=== PATIENT | female | born 1950 | race Caucasian/White ===

== ENCOUNTER 2023-03-11 14:16 | Emergency (ER) | payer MEDICARE, BC, SELFPAY ==
[2023-03-11 14:50] VITALS: BP 112/70; PULSE 91; RESP 18; TEMP 37.5; O2SAT 95; BMI 28.3
[2023-03-11 16:13] VITALS: O2SAT 97
--- NOTE | 2023-03-11 16:17 | CRLHL7_ITS ---
For Patients: As a result of the Cures Act, medical imaging exams and procedure reports are released immediately into your electronic medical record. You may view this report before your referring provider. If you have questions, please contact your health care provider. INDICATION: Dyspnea. TECHNIQUE: Chest radiographs, two views. COMPARISON: None. FINDINGS: Lines/Tubes/Devices: None. Mediastinum: Normal cardiac silhouette. Tortuous aorta. Lungs: Patchy ill-defined opacification of the left lower lung zone. Airways: The trachea remains midline. Pleura: No pleural effusions or pneumothorax. Bones: No acute osseous abnormalities. Upper Abdomen: Unremarkable. IMPRESSION: Patchy ill-defined opacification of the left lower lung zone may represent atelectasis versus a developing pneumonia in the appropriate clinical setting. Dictated by Oscar Lopez MD @ 03/11/2023 5:40:23 PM (Electronically Signed)
--- NOTE | 2023-03-11 16:23 | ED.GENADULT ---
HPI - General Adult General Chief complaint: Shortness of Breath/Dyspnea Stated complaint: Shortness of breath Time Seen by Provider: 03/11/23 16:03 Source: patient Mode of arrival: ambulatory Limitations: no limitations History of Present Illness HPI narrative: 72-year-old female coming in today complaining of chest pain that started approximately 14 hours ago. She states she woke up in the middle of the night and had difficulty breathing because she has so much pain in her central chest. The pain radiated into both shoulders and her upper back. She states that she was able to sit up and the pain got better. She has been afraid to lay down for the last 14 hours. She also states she has not eaten in the last 14 hours because she is afraid that will make her pain worse. She states that sitting here in the ER, she is asymptomatic. However, she states that she cannot take a full breath because it causes pain in the central chest so she states that she is breathing with very shallow, short breaths. She denies fevers or chills. She states that she has a chronic cough, she is a smoker. Smokes half pack cigarettes per day for many years. She denies headache. She has no abdominal discomfort. No swelling of the extremities. She denies any recent travel or long car rides. She has no personal history of blood clots. Past medical history significant for hypothyroidism, hyperlipidemia, GERD. She is on famotidine, levothyroxine rosuvastatin. Denies any new medications. Related Data Home Medications Medication Instructions Recorded Confirmed levothyroxine 100 mcg tablet 100 mcg PO QDAY 12/18/21 03/11/23 (Synthroid) famotidine 20 mg tablet (Acid-Pep) 20 mg PO DAILY 03/11/23 03/11/23 rosuvastatin 10 mg tablet 10 mg PO QPM 03/11/23 03/11/23 Previous Rx's Medication Instructions Recorded amoxicillin 875 mg-potassium 1 tab PO BID 7 days #14 tabs 03/11/23 clavulanate 125 mg tablet azithromycin 250 mg tablet 250 mg PO DIRECTED #6 tabs 03/11/23 Allergies Allergy/AdvReac Type Severity Reaction Status Date / Time No Known Drug Allergies Allergy Verified 03/11/23 17:42 Review of Systems Status of ROS: Reports: 10 or more systems reviewed and unremarkable except as noted in History and below PFSH PFSH Social History Smoking Status: Current every day smoker Exam Narrative: Exam Narrative: Well-nourished well-developed patient in no acute distress. Alert and oriented. Answers questions appropriately. Mood and affect are appropriate. Thoughts are goal oriented and rational. No tangential or magical thinking noted. Patient speaks in full sentences without needing to catch her breath. Patient is breathing normally, breaths do not appear shallow. She is not tachypneic. HEENT: Normocephalic atraumatic. Pupils are equally round reactive to light. Extraocular muscles are intact. Conjunctivae are moist without any icterus noted. Moist mucous membranes. Posterior pharynx is normal. Neck is soft without any lymphadenopathy or thyromegaly. No masses are appreciated. Cardiovascular: Heart is regular rate and rhythm S1 and S2 are present without any murmurs. Lungs: Clear to auscultation bilaterally no wheezes rhonchi or rales are appreciated. Patient takes deep breaths without any discomfort. I cannot reproduce her pain with palpation. Abdomen: Soft and nontender nondistended with normal bowel sounds. No guarding or rebound. No masses or organomegaly appreciated. Extremities: Bilateral lower extremities are without edema. Normal DP and PT pulses. Skin: Well perfused without any obvious rashes. Const: Vital Signs, click to edit/add: Vital Signs - 24 hr 03/11/23 14:50 03/11/23 16:13 03/11/23 18:00 Temperature 99.5 F Pulse Rate [Right Pulse Oximeter] 91 71 Respiratory Rate 18 18 Blood Pressure [Ri ght Upper Arm] 112/70 114/64 Pulse Oximetry 95 97 95 Oxygen Delivery Me thod Room Air Room Air Course Course ED Course: EKG, read by me, shows normal sinus rhythm with a pulse of 74. CBC showed a slightly elevated white cell count. CRP is elevated at 4.8. Triple swab is negative. Chest x-ray, read by me, shows a probable left-sided infiltrate. D-dimer is elevated. Therefore we did do a CT PE study. This did not show any evidence of PE. Atelectasis was mentioned. Vital Signs Vital signs: Initial Vital Signs Temperature 99.5 F 03/11/23 14:50 Temperature Source Temporal Artery Scan 03/11/23 14:50 Pulse Rate 91 03/11/23 14:50 Respiratory Rate 18 03/11/23 14:50 Blood Pressure 112/70 03/11/23 14:50 Blood Pressure Mean 84 03/11/23 14:50 Blood Pressure Position Sitting 03/11/23 14:50 Pulse Oximetry 95 03/11/23 14:50 Oxygen Delivery Method Room Air 03/11/23 14:50 Vital Signs Temperature 99.5 F 03/11/23 14:50 Pulse Rate 91 03/11/23 14:50 Respiratory Rate 18 03/11/23 14:50 Blood Pressure 112/70 03/11/23 14:50 Pulse Oximetry 95 03/11/23 14:50 Oxygen Delivery Method Room Air 03/11/23 14:50 Temperature 99.5 F 03/11/23 14:50 Pulse Rate 71 03/11/23 18:00 Respiratory Rate 18 03/11/23 18:00 Blood Pressure 114/64 03/11/23 18:00 Pulse Oximetry 95 03/11/23 18:00 Oxygen Delivery Method Room Air 03/11/23 18:00 Medical Decision Making MDM Narrative Medical decision making narrative: 72-year-old female chest pain and subjective shortness of breath. Differential diagnosis at this time includes pneumonia, pleurisy, chest wall pain. I do not see any evidence of a PE, acute coronary syndrome. Given that she is generally asymptomatic unless she is taking a deep breath I do he not think this represents a aortic dissection. At this time given her elevated CRP and white blood cell count will treat her for pneumonia with Augmentin and azithromycin. She does also have a few pulmonary nodules that she needs to follow up with her primary care provider about. Lab Data Lab results reviewed: Yes I reviewed the patient's lab results Labs: Lab Results 03/11/23 03/11/23 03/11/23 Range/Units 16:00 16:00 16:00 WBC 12.92 H (4.50-11.00) K/uL RBC 4.24 (4.00-5.20) m/uL Hgb 12.0 (12.0-16.0) gm/dL Hct 36.6 (33.0-51.0) % MCV 86 (80-100) fL MCH 28 (26-34) pg MCHC 33 (32-36) gm/dL RDW Coeff of Elie 13.4 (11.5-15.5) % Plt Count 407 (140-440) K/uL Neut % (Auto) 72.6 H (42.0-72.0) % Lymph % (Auto) 19.3 L (20-44) % [place] % (Auto) 7.6 (0.0-11.0) % Eos % (Auto) 0.0 (0.0-7.0) % Baso % (Auto) 0.3 (0.0-3.0) % Neut # (Auto) 9.40 H (1.7-7.0) K/uL Lymph # (Auto) 2.50 (0.90-2.90) K/uL [place] # (Auto) 1.00 H (0.00-0.90) K/UL Eos # (Auto) 0.00 (0.00-0.50) K/uL Baso # (Auto) 0.00 (0.00-0.30) K/uL Abs Immat Gran (auto) 0.00 (0.00-0.30) K/uL Imm/Tot Granulo (auto) 0.2 % ESR 26 H (2-20) mm/hr D-Dimer Quant (PE/DVT) 0.70 H (0.00-0.50) ug/ml Sodium Cancelled 134 L Potassium Cancelled 3.8 Chloride Cancelled Carbon Dioxide Anion Gap BUN Creatinine Estimated Creat Clear Estimated GFR Glucose Calcium Total Bilirubin (0.1-1.5) mg/dL Direct Bilirubin (0.0-0.5) mg/dL AST (12-35) U/L ALT (4-35) U/L Alkaline Phosphatase (40-150) U/L Troponin I (0.01-0.04) ng/mL C-Reactive Protein (0.5-1.0) mg/dL NT-Pro-B Natriuret Pep pg/mL Total Protein (6.0-8.3) g/dL Albumin (3.3-5.0) g/dL Lipase (23-300) U/L SARS-CoV-2 (PCR) (Negative) Influenza Type A (PCR) (Negative) Influenza Type B (PCR) (Negative) RSV (PCR) (Negative) POC Troponin I (0.01-0.04) ng/ml 03/11/23 03/11/23 03/11/23 Range/Units 16:00 16:00 16:00 WBC (4.50-11.00) K/uL RBC (4.00-5.20) m/uL Hgb (12.0-16.0) gm/dL Hct (33.0-51.0) % MCV (80-100) fL MCH (26-34) pg MCHC (32-36) gm/dL RDW Coeff of Elie (11.5-15.5) % Plt Count (140-440) K/uL Neut % (Auto) (42.0-72.0) % Lymph % (Auto) (20-44) % [place] % (Auto) (0.0-11.0) % Eos % (Auto) (0.0-7.0) % Baso % (Auto) (0.0-3.0) % Neut # (Auto) (1.7-7.0) K/uL Lymph # (Auto) (0.90-2.90) K/uL [place] # (Auto) (0.00-0.90) K/UL Eos # (Auto) (0.00-0.50) K/uL Baso # (Auto) (0.00-0.30) K/uL Abs Immat Gran (auto) (0.00-0.30) K/uL Imm/Tot Granulo (auto) % ESR (2-20) mm/hr D-Dimer Quant (PE/DVT) (0.00-0.50) ug/ml Sodium Potassium Chloride 99 Carbon Dioxide Cancelled 22 Anion Gap Cancelled 13 BUN Cancelled Creatinine Estimated Creat Clear Estimated GFR Glucose Calcium Total Bilirubin (0.1-1.5) mg/dL Direct Bilirubin (0.0-0.5) mg/dL AST (12-35) U/L ALT (4-35) U/L Alkaline Phosphatase (40-150) U/L Troponin I (0.01-0.04) ng/mL C-Reactive Protein (0.5-1.0) mg/dL NT-Pro-B Natriuret Pep pg/mL Total Protein (6.0-8.3) g/dL Albumin (3.3-5.0) g/dL Lipase (23-300) U/L SARS-CoV-2 (PCR) (Negative) Influenza Type A (PCR) (Negative) Influenza Type B (PCR) (Negative) RSV (PCR) (Negative) POC Troponin I (0.01-0.04) ng/ml 03/11/23 03/11/23 03/11/23 Range/Units 16:00 16:00 16:00 WBC (4.50-11.00) K/uL RBC (4.00-5.20) m/uL Hgb (12.0-16.0) gm/dL Hct (33.0-51.0) % MCV (80-100) fL MCH (26-34) pg MCHC (32-36) gm/dL RDW Coeff of Elie (11.5-15.5) % Plt Count (140-440) K/uL Neut % (Auto) (42.0-72.0) % Lymph % (Auto) (20-44) % [place] % (Auto) (0.0-11.0) % Eos % (Auto) (0.0-7.0) % Baso % (Auto) (0.0-3.0) % Neut # (Auto) (1.7-7.0) K/uL Lymph # (Auto) (0.90-2.90) K/uL [place] # (Auto) (0.00-0.90) K/UL Eos # (Auto) (0.00-0.50) K/uL Baso # (Auto) (0.00-0.30) K/uL Abs Immat Gran (auto) (0.00-0.30) K/uL Imm/Tot Granulo (auto) % ESR (2-20) mm/hr D-Dimer Quant (PE/DVT) (0.00-0.50) ug/ml Sodium Potassium Chloride Carbon Dioxide Anion Gap BUN 9 Creatinine Cancelled 0.5 Estimated Creat Clear Cancelled 39.04 Estimated GFR Cancelled Glucose Calcium Total Bilirubin (0.1-1.5) mg/dL Direct Bilirubin (0.0-0.5) mg/dL AST (12-35) U/L ALT (4-35) U/L Alkaline Phosphatase (40-150) U/L Troponin I (0.01-0.04) ng/mL C-Reactive Protein (0.5-1.0) mg/dL NT-Pro-B Natriuret Pep pg/mL Total Protein (6.0-8.3) g/dL Albumin (3.3-5.0) g/dL Lipase (23-300) U/L SARS-CoV-2 (PCR) (Negative) Influenza Type A (PCR) (Negative) Influenza Type B (PCR) (Negative) RSV (PCR) (Negative) POC Troponin I (0.01-0.04) ng/ml 03/11/23 03/11/23 03/11/23 Range/Units 16:00 16:00 16:00 WBC (4.50-11.00) K/uL RBC (4.00-5.20) m/uL Hgb (12.0-16.0) gm/dL Hct (33.0-51.0) % MCV (80-100) fL MCH (26-34) pg MCHC (32-36) gm/dL RDW Coeff of Elie (11.5-15.5) % Plt Count (140-440) K/uL Neut % (Auto) (42.0-72.0) % Lymph % (Auto) (20-44) % [place] % (Auto) (0.0-11.0) % Eos % (Auto) (0.0-7.0) % Baso % (Auto) (0.0-3.0) % Neut # (Auto) (1.7-7.0) K/uL Lymph # (Auto) (0.90-2.90) K/uL [place] # (Auto) (0.00-0.90) K/UL Eos # (Auto) (0.00-0.50) K/uL Baso # (Auto) (0.00-0.30) K/uL Abs Immat Gran (auto) (0.00-0.30) K/uL Imm/Tot Granulo (auto) % ESR (2-20) mm/hr D-Dimer Quant (PE/DVT) (0.00-0.50) ug/ml Sodium Potassium Chloride Carbon Dioxide Anion Gap BUN Creatinine Estimated Creat Clear Estimated GFR 98 Glucose Cancelled 115 Calcium Cancelled 9.7 Total Bilirubin 0.6 (0.1-1.5) mg/dL Direct Bilirubin 0.0 (0.0-0.5) mg/dL AST 20 (12-35) U/L ALT 16 (4-35) U/L Alkaline Phosphatase 83 (40-150) U/L Troponin I < 0.01 L (0.01-0.04) ng/mL C-Reactive Protein (0.5-1.0) mg/dL NT-Pro-B Natriuret Pep pg/mL Total Protein (6.0-8.3) g/dL Albumin (3.3-5.0) g/dL Lipase (23-300) U/L SARS-CoV-2 (PCR) (Negative) Influenza Type A (PCR) (Negative) Influenza Type B (PCR) (Negative) RSV (PCR) (Negative) POC Troponin I (0.01-0.04) ng/ml 03/11/23 03/11/23 03/11/23 Range/Units 16:00 16:00 16:15 WBC (4.50-11.00) K/uL RBC (4.00-5.20) m/uL Hgb (12.0-16.0) gm/dL Hct (33.0-51.0) % MCV (80-100) fL MCH (26-34) pg MCHC (32-36) gm/dL RDW Coeff of Elie (11.5-15.5) % Plt Count (140-440) K/uL Neut % (Auto) (42.0-72.0) % Lymph % (Auto) (20-44) % [place] % (Auto) (0.0-11.0) % Eos % (Auto) (0.0-7.0) % Baso % (Auto) (0.0-3.0) % Neut # (Auto) (1.7-7.0) K/uL Lymph # (Auto) (0.90-2.90) K/uL [place] # (Auto) (0.00-0.90) K/UL Eos # (Auto) (0.00-0.50) K/uL Baso # (Auto) (0.00-0.30) K/uL Abs Immat Gran (auto) (0.00-0.30) K/uL Imm/Tot Granulo (auto) % ESR (2-20) mm/hr D-Dimer Quant (PE/DVT) (0.00-0.50) ug/ml Sodium Potassium Chloride Carbon Dioxide Anion Gap BUN Creatinine Estimated Creat Clear Estimated GFR Glucose Calcium Total Bilirubin (0.1-1.5) mg/dL Direct Bilirubin (0.0-0.5) mg/dL AST (12-35) U/L ALT (4-35) U/L Alkaline Phosphatase (40-150) U/L Troponin I Cancelled (0.01-0.04) ng/mL C-Reactive Protein 4.8 H (0.5-1.0) mg/dL NT-Pro-B Natriuret Pep 174 Cancelled pg/mL Total Protein 7.5 (6.0-8.3) g/dL Albumin 4.7 (3.3-5.0) g/dL Lipase 13 L (23-300) U/L SARS-CoV-2 (PCR) Negative SARS-CoV-2 (Negative) Influenza Type A (PCR) Negative PCR FLU A (Negative) Influenza Type B (PCR) Negative PCR FLU B (Negative) RSV (PCR) Negative PCR RSV (Negative) POC Troponin I (0.01-0.04) ng/ml 03/11/23 Range/Units 16:17 WBC (4.50-11.00) K/uL RBC (4.00-5.20) m/uL Hgb (12.0-16.0) gm/dL Hct (33.0-51.0) % MCV (80-100) fL MCH (26-34) pg MCHC (32-36) gm/dL RDW Coeff of Elie (11.5-15.5) % Plt Count (140-440) K/uL Neut % (Auto) (42.0-72.0) % Lymph % (Auto) (20-44) % [place] % (Auto) (0.0-11.0) % Eos % (Auto) (0.0-7.0) % Baso % (Auto) (0.0-3.0) % Neut # (Auto) (1.7-7.0) K/uL Lymph # (Auto) (0.90-2.90) K/uL [place] # (Auto) (0.00-0.90) K/UL Eos # (Auto) (0.00-0.50) K/uL Baso # (Auto) (0.00-0.30) K/uL Abs Immat Gran (auto) (0.00-0.30) K/uL Imm/Tot Granulo (auto) % ESR (2-20) mm/hr D-Dimer Quant (PE/DVT) (0.00-0.50) ug/ml Sodium Potassium Chloride Carbon Dioxide Anion Gap BUN Creatinine Estimated Creat Clear Estimated GFR Glucose Calcium Total Bilirubin (0.1-1.5) mg/dL Direct Bilirubin (0.0-0.5) mg/dL AST (12-35) U/L ALT (4-35) U/L Alkaline Phosphatase (40-150) U/L Troponin I (0.01-0.04) ng/mL C-Reactive Protein (0.5-1.0) mg/dL NT-Pro-B Natriuret Pep pg/mL Total Protein (6.0-8.3) g/dL Albumin (3.3-5.0) g/dL Lipase (23-300) U/L SARS-CoV-2 (PCR) (Negative) Influenza Type A (PCR) (Negative) Influenza Type B (PCR) (Negative) RSV (PCR) (Negative) POC Troponin I 0.00 L (0.01-0.04) ng/ml Imaging Data Chest x-ray: Attestation: I have reviewed the pertinent imaging results. Radiologist's impression: Chest radiographs, two views. COMPARISON: None. FINDINGS: Lines/Tubes/Devices: None. Mediastinum: Normal cardiac silhouette. Tortuous aorta. Lungs: Patchy ill-defined opacification of the left lower lung zone. Airways: The trachea remains midline. Pleura: No pleural effusions or pneumothorax. Bones: No acute osseous abnormalities. Upper Abdomen: Unremarkable. IMPRESSION: Patchy ill-defined opacification of the left lower lung zone may represent atelectasis versus a developing pneumonia in the appropriate clinical setting. CT scan - chest: Attestation: I have reviewed the pertinent imaging results. Radiologist's impression: CT chest pulmonary angiogram acquired with IV contrast. 95 mL Isovue COMPARISON: None FINDINGS: Cardiovascular structures: Normal vascular enhancement of the pulmonary arteries, no sign of pulmonary embolism. Heart size is normal. No sign of aneurysm or dissection in the thoracic aorta. Mediastinum and lakia: No mass or adenopathy. Lungs: Mild emphysema. Right upper lobe peripheral micro nodule measuring 3 millimeters 07/22 basilar atelectasis. Additional few nodules to include a 4 millimeter perifissural nodule along the right minor fissure . Pleura and pericardium: No effusions. Chest wall and axilla: No mass or adenopathy. Bones: No significant findings. Upper abdomen: Fatty infiltration of pancreas IMPRESSION: 1. No pulmonary emboli. 2. Few small pulmonary nodules follow-up per Fleischner society guidelines. ECG Data Attestation: I personally reviewed and interpreted this ECG as follows: Discharge Plan Discharge Clinical Impression: Pneumonia Patient Disposition: Home, Self-Care Condition: Stable Additional Instructions: Take all antibiotics as prescribed. Okay to use Tylenol as needed/as directed for fever or achiness. Make sure to take deep breaths throughout the day. Return to the ER if you develop difficulty breathing. Your CT scan today did not show any evidence of blood clots. However did show some pulmonary nodules, which are usually benign findings. However, given your smoking history you should follow-up with your primary care provider to discuss if any next steps are needed. We will print a report of the CT scan today that you can take with you and follow-up with your primary care provider in the next couple of weeks. Prescriptions: New amoxicillin-pot clavulanate 875-125 mg tablet 1 tab PO BID 7 Days Qty: 14 0RF azithromycin 250 mg tablet 250 mg PO DIRECTED Qty: 6 0RF Taper: Z-LITA 500 mg Q24H for 1 Day and 0 Hour 250 mg Q24H for 4 Days and 0 Hour Rx Instructions: For 250 mg dose pack: take 500 mg today (day 1), then 250 mg for 4 days (days 2-5) No Action levothyroxine [Synthroid] 100 mcg tablet 100 mcg PO QDAY rosuvastatin 10 mg tablet 10 mg PO QPM famotidine [Acid-Pep] 20 mg tablet 20 mg PO DAILY Follow Up/Referrals: Yolanda Reilly DO [Primary Care Provider] - Stand Alone Forms: [facility]
[2023-03-11 16:38] LABS: Basophils Percent Auto 0.3 % (0.0-3.0); Hematocrit 36.6 % (33.0-51.0); Immature Granulocytes Pct Auto 0.2 %; Lymphocytes Percent Auto 19.3 % (20-44); Mean Corpuscular HGB Conc 33 gm/dL (32-36); Mean Corpuscular Hemoglobin 28 pg (26-34); Mean Corpuscular Volume 86 fL (80-100); Monocytes Percent Auto 7.6 % (0.0-11.0); Neutrophils Percent Auto 72.6 % (42.0-72.0); Platelet Count* 407 K/uL (140-440); RDW Coefficient of Variation % 13.4 % (11.5-15.5); Red Blood Count 4.24 m/uL (4.00-5.20); White Blood Count* 12.92 K/uL (4.50-11.00)
[2023-03-11 16:45] LABS: Slide Review Reflex No
[2023-03-11 16:55] LABS: Albumin* 4.7 g/dL (3.3-5.0); Chloride* 99 mmol/L (96-114); Sodium* 134 mmol/L (135-149)
[2023-03-11 16:56] LABS: Potassium* 3.8 mmol/L (3.6-5.1)
[2023-03-11 16:58] LABS: Creatinine* 0.5 mg/dL (0.5-1.5); Est. Creatinine Clearance* 39.04; Estimated Glomerular Filt Rate 98 ml/min
[2023-03-11 16:59] LABS: Alanine Aminotransferase* 16 U/L (4-35); Alkaline Phosphatase* 83 U/L (40-150); Anion Gap 13 mEq/L (7-15); Aspartate Amino Transferase* 20 U/L (12-35); Bilirubin Total* 0.6 mg/dL (0.1-1.5); Blood Urea Nitrogen* 9 mg/dL (7-30); Calcium* 9.7 mg/dL (8.4-10.6); Carbon Dioxide* 22 mmol/L (20-32); Glucose* 115 mg/dL (60-115); Lipase* 13 U/L (23-300); Total Protein* 7.5 g/dL (6.0-8.3)
[2023-03-11 17:02] LABS: C Reactive Protein* 4.8 mg/dL (0.5-1.0)
--- NOTE | 2023-03-11 17:04 | CRLHL7_ITS ---
For Patients: As a result of the Century Cures Act, medical imaging exams and procedure reports are released immediately into your electronic medical record. You may view this report before your referring provider. If you have questions, please contact your health care provider. INDICATION: Chest pain TECHNIQUE: CT chest pulmonary angiogram acquired with IV contrast. 95 mL Isovue COMPARISON: None FINDINGS: Cardiovascular structures: Normal vascular enhancement of the pulmonary arteries, no sign of pulmonary embolism. Heart size is normal. No sign of aneurysm or dissection in the thoracic aorta. Mediastinum and lakia: No mass or adenopathy. Lungs: Mild emphysema. Right upper lobe peripheral micro nodule measuring 3 millimeters 07/22 basilar atelectasis. Additional few nodules to include a 4 millimeter perifissural nodule along the right minor fissure . Pleura and pericardium: No effusions. Chest wall and axilla: No mass or adenopathy. Bones: No significant findings. Upper abdomen: Fatty infiltration of pancreas IMPRESSION: 1. No pulmonary emboli. 2. Few small pulmonary nodules follow-up per Fleischner society guidelines. Please note that all CT scans at this facility use dose modulation, iterative reconstruction, and/or weight-based dosing when appropriate to reduce radiation dose to as low as reasonably achievable. Dictated by Vicki Hernández MD @ 03/11/2023 6:29:43 PM (Electronically Signed)
[2023-03-11 17:10] LABS: NT Pro B Type NatriureticPept* 174 pg/mL
[2023-03-11 17:12] LABS: Troponin I* < 0.01 ng/mL (0.01-0.04)
[2023-03-11 17:17] LABS: PCR FLU A Negative PCR FLU A (Negative); PCR FLU B Negative PCR FLU B (Negative); PCR RSV Negative PCR RSV (Negative)
[2023-03-11 17:18] LABS: SARS PCR* Negative SARS-CoV-2 (Negative)
[2023-03-11 17:22] LABS: Erythrocyte SedimentationRate* 26 mm/hr (2-20)
[2023-03-11 18:00] VITALS: BP 114/64; PULSE 71; RESP 18; O2SAT 95
== END 2023-03-11 18:48 | disposition home or self-care (01) ==
PROVIDERS: Emergency Provider Family Medicine; PCP Family Medicine
DX: J18.9 Pneumonia, unspecified organism (principal)
CPT/HCPCS: 36415; 71046; 71275; 80048; 80076; 83690; 83880; 84484; 85025; 85379; 85651; 86140; 87631; 93005; 94761; 99284; 99285; Q9967

== ENCOUNTER 2023-06-23 08:06 | Outpatient (CLI) | payer MEDICARE, BC, SELFPAY ==
--- NOTE | 2023-06-23 08:15 | FL_ITS ---
Patient: ADAN ROSALES Facility:?[facility] RIS Patient ID:?[id number] Site Patient ID:?[id number]. Site :?[id number] Study:?XRay-Abdomen ESOPHAGRAM W/AIR TO READ-06/23/2023 11:36:37 AM Ordering Physician:?HAILEE BRANCH Final Report: Technique: Double-contrast esophagram performed after the uneventful administration of effervescent crystals and thick barium followed by thin barium. Fluoroscopy time 48 seconds. Indication: Dysphagia Comparison: None. Findings: A small sliding hiatal hernia is present. There is minimal spasm of the distal esophagus. Delayed esophageal clearance noted. No obstruction to the flow of barium. No stricture. A small diverticulum is noted at the upper esophagus. No ulceration. Impression: Decreased esophageal motility. No stricture. Small sliding hiatal hernia. Minimal distal esophageal reflux esophagitis. Dictated by Andre Hassan MD @ 06/23/2023 12:36:35 PM Signed by:?Andre Hassan MD @06/23/2023 12:36:35 PM (Electronic Signature)
== END 2023-06-23 08:07 | disposition home or self-care (01) ==
LOC: RAD 08:07
PROVIDERS: PCP Family Medicine; Visit Provider Family Medicine
DX: R13.10 Dysphagia, unspecified (principal); K44.9 Diaphragmatic hernia without obstruction or gangrene
CPT/HCPCS: 74221

== ENCOUNTER 2023-11-04 10:06 | Outpatient (CLI) | payer MEDICARE, BC, SELFPAY ==
--- OUTSIDE RECORDS SUMMARY | 2023-11-04 10:10 | XMS_ITS | Clinical Summary ---
Author Organization [employer] Aff[facility] Address [place], [place] [address] Care Team Providers Care Medical Donation Professional Name Role Phone IrasemahoangYolanda Primary Care Provider [phone] Allergies No known active allergies Medications Medication Sig Dispensed Refills Start Date End Date Status vitamin B complex (B-50 COMPLEX) tablet Take 1 tablet by mouth once daily. 0 5 Active cyanocobalamin (VITAMIN B-12) 1,000 mcg tablet Take 1 tablet by mouth once daily. Unsure of dose. 0 5 Active glucosamine-chondr oitin, 500-400 mg, (COSAMIN DS 500/400) 500-400 mg cap Take 1 capsule by mouth once daily. 0 8 Active famotidine (PEPCID) 20 mg tablet Take 20 mg by mouth two times daily. 0 0 Active Lactobacillus rhamnosus GG 5 billion cell chew Chew by mouth. 0 2 Active rosuvastatin (CRESTOR) 10 mg tabletIndications: Hyperlipidemia, unspecified hyperlipidemia type Take 1 Tablet (10 mg) by mouth at bedtime. 90 Tablet 3 3 Active Synthroid 100 mcg tabletIndications: Hypothyroidism, unspecified type TAKE ONE TABLET BY MOUTH EVERY DAY 90 Tablet 2 4 Active acetaminophen (TYLENOL EXTRA STRGTH) 500 mg tablet Take 500 mg by mouth. 1 in the am, 1 at noon and 2 at bedtime Max acetaminophen dose: 4000mg in 24 hrs. Active miscellaneous medical supply (Blood Pressure Cuff) miscIndications:El evated BP without diagnosis of hypertension As directed. Automatic home blood pressure cuff 1 Each 4 Active triamcinolone (ARISTOCORT) 0.5 % ointmentIndication s:Vaginal itching Apply peasized amount to perineum nightly x 2 weeks, then decrease to twice a week 120 g 1 4 Active polyethylene glycol-electrolyte (GOLYTELY) 236-22.74-6.74 -5.86 gram suspensionIndicati ons:Encounter for screening colonoscopy Drink 2 liters (1/2 of prep) the day before colonoscopy and drink 2 liters (other 1/2 of prep) 6 hours before colonoscopy appointment. 4000 mL 4 Active omeprazole (PRILOSEC) 40 mg Delayed-Release capsuleIndications :Motility disorder, esophageal TAKE ONE CAPSULE BY MOUTH EVERY DAY BEFORE A MEAL 60 Capsule 2 4 Active omeprazole (PRILOSEC) 40 mg Delayed-Release capsuleIndications :Motility disorder, esophageal TAKE ONE CAPSULE BY MOUTH EVERY DAY BEFORE A MEAL 60 Capsule 4 024 Discontinued Hospital, Clinic, or Other Facility Administered Medication Ordered Dose Route Frequency Start Date End Date Status fentaNYL (PF) (SUBLIMAZE) 50 mcg/mL injection 100 mcgIndications:Screening for colon cancer 100 mcg IV ONE TIME 10/12/2023 10/12/2023 Ended midazolam (VERSED) injection 2 mgIndications:Screening for colon cancer 2 mg IV ONE TIME 10/12/2023 10/12/2023 Ended Active Problems Problem Noted Date Diagnosed Date Colon polyp 10/18/2023 Overview: Colonoscopy 09/2023 TA, repeat in 5 years Osteopenia of multiple sites 10/05/2016 DDD (degenerative disc disease), lumbar 08/27/19 16 Gastritis 01/09/2015 Overview: EGD 12/2014 gastritis, duodenitis Diverticulosis of large intestine without hemorr ty 12/11/2014 Routine adult health maintenance 07/19/2013 Overview: Colonoscopy 07/2013 diverticulosis repeat in 10 years Mixed hyperlipidemia 09/05/2007 Unspecified vitamin deficiency 09/02/2006 Stricture and stenosis of esophagus 08/29/2006 Overview: last endoscopy 2003, repeat 2009 Esophageal reflux 08/29/2006 Tobacco use disorder 08/29/2006 Insomnia, unspecified 08/29/2006 Palpitations 08/29/2006 Routine general medical exam ination at a health care facility 08/29/2006 Unspecified hypothyroidism Other and unspecified hyperlipidemia Cervicalgia Unspecified hypothyroidism Resolved Problems Problem Noted Date Diagnosed Date Resolved Date Mixed hyperlipidemia 09/05/2007 009 Mixed hyperlipidemia 09/05/2007 009 Encounters Date Type Department Care Team Description 10/31/2023 1:05 PM CDT Preop Visit [facility] [address] [place] [address] Yolanda Reilly DO Preoperative Exam (EGD at [facility] 11/04/[address] Mora ) 10/31/2023 Travel 10/23/2023 Refill [facility] [address] [place] [address] Yolanda Reilly DO Refill Request (Omeprazole) 10/17/2023 2:20 PM CDT Office Visit [facility] [address] [place] [address] Yolanda Reilly DO Abdominal Pain (medication helping but not enough) 10/17/2023 Telephone [facility] [address] [place] [address] Carlyle Mora MD Pre Procedure 10/17/2023 Travel 10/12/2023 8:45 AM CDT Office Visit [address] [address] Carlyle Mora MD Procedure (colonoscopy) 10/12/2023 Travel 10/10/2023 Telephone [facility] [address] [place] [address] Yolanda Reilly DO questions (omeprazole (PRILOSEC) 40 mg Delayed-Release capsule/famotidine (PEPCID) 20 mg tablet/) 10/04/2023 Telephone [facility] [address] [place] [address] Carlyle Mora MD Appointment Reminder (Colonoscopy 10/12/23) 09/21/2023 11:00 AM CDT Office Visit [facility] [[email or web address] [address] [place] [address] Daryl Fonseca MD Hip Pain/problem (right hip pain) 09/21/2023 Travel 09/05/2023 Telephone [facility] [address] [place] [address] Yolanda Reilly DO Error-please disregard 09/05/2023 Telephone [facility] [address] [facility] [place] [address] Yolanda eRilly DO Results 09/04/2023 Orders Only [facility] [place] [address] Yolanda Reilly DO <No scans attached> 09/02/2023 Telephone [facility] [address] [facility] [address] Carlyle Mora MD Screening 08/31/2023 12:45 PM CDT Ancillary Procedure [address] [place] [address] 08/31/2023 12:30 PM CDT Ancillary Procedure [address] [address] 08/31/2023 10:50 AM CDT Office Visit [facility] [place] [address] Yolanda Reilly DO Medicare ANNUAL (subsequent) Visit (73 year old medicare); Hip Pain/problem (Right sided hip pain) 08/31/2023 Travel 08/27/2023 Refill [facility] [address] [place] [address] Yolanda Reilly DO Refill Request (Synthroid, Omeprazole) from Last 3 Months Immunizations Name Administration Dates Next Due AMB INFLUENZA IIV3 (AGE 65+ YRS) PF (Flu Clinic Only) 12/20/2018,12/22/2017,01/11/2017 Amb Influenza, Inactivated A IIV4 (Age 65+ Years) Preserv Free 01/08/2020 COVID-19 vaccine (Moderna 10 0mcg/0.5mL) PF, MDV 02/04/2021 COVID-19 vaccine (Moderna 50 mcg/0.5mL) 12YO+ BIVALENT PF, MDV 12/18/2021 Influenza, High-dose Inactivated 03/19/2016,12/0 10/2014,12/19/2013 Influenza, High-dose Quadriv alent Inactivated 01/05/2023,01/06/2021 Pneumococcal Poly,23-Valent (Pneumovax) 12/20/19 14 Pneumococcal conj 13-Valent (Prevnar 13) 016 Td (Age >=7 Years) 03/26/1998 Tdap 09/25/2008 Zoster (Shingrix-RZV, recombinant) 12/22/2022, Zoster (Zostavax-ZVL, live) 06/26/2012 Family History Medical History Relation Name Comments Stroke Brother Cancer-prostate Father in his 60's Cancer-breast Maternal Aunt Heart Disease Maternal Grandfather Cancer Maternal Grandmother uterine CA Arthritis Mother Dementia Mother Alcohol/Drug Paternal Grandfather ve ry young Cancer Paternal Grandmother Cancer-breast Sister 1 Relation Name Status Comments Brother Alive asthma Father prostate ca, di ed during surgery, etohilic Maternal Aunt Maternal Grandfather Maternal Grandmother Mother Alive cholesterol, as thma Paternal Grandfather Paternal Grandmother Sister 1 Alive asthma Sister 2 Alive asthma Social History Tobacco Use Types Packs/Day Years Used Date Smoking Tobacco: Former Cigarettes 0.5 58.1 1 966 - 05/05/2023 Smokeless Tobacco: Never Tobacco Cessation:Counseling Given: Yes Alcohol Use Standard Drinks/Week Comments Yes 0 (1 standard drink = 0.6 oz pur e alcohol) PHQ-2 Answer Date Recorded PHQ-2 TOTAL SCORE 0 08/31/2023 Social Connections Answer Date Recorded Frequency of Communication with Friends and Fami ly 0 04/06/2023 Alcohol Use Answer Date Recorded How often do you have a drink containing alcohol ? 1 08/31/2023 How many drinks containing a lcohol do you have on a typical day when you are drinking? 0 08/31/2023 How often do you have five or more drinks on one occasion? 0 08/31/2023 Financial Resource Strain Answer Date R ecorded Difficulty of Paying Living Expenses 3 04/06/2023 Difficulty of Paying Living Expenses Not on file 04/06/2023 Food Insecurity Answer Date Recorded Worried About Running Out of Food in the Last Ye ar 1 04/06/2023 Transportation Needs Answer Date Record ed Lack of Transportation (Medical) 1 04/06/2023 Housing Stability Answer Date Recorded Unable to Pay for Housing in the Last Year 1 04/06/2023 Sex and Gender Information Value Date Recorded Sex Assigned at Not on file Gender Identity Not on file Sexual Orientation Not on file Obstetrics History Para Term AB IAB SAB Ectopic Multiple Livin g Live Births 2 2 Date Outcome GA Total Labor Labor/2nd/3rd Weight Sex Type Anes PTL Erin A1 A5 Name Clin Last Filed Vital Signs Vital Sign Reading Time Taken Comments Blood Pressure 138/80 10/31/2023 1:19 PM CDT Pulse 70 10/31/2023 1:05 PM CDT Temperature 37.1 ??C (98.7 ??F) 04/12/2023 2:16 PM CS T Respiratory Rate 14 10/12/2023 10:00 AM CDT Oxygen Saturation 97% 10/31/2023 1:05 PM CDT Inhaled Oxygen Concentration - - Weight 76.2 kg (168 lb 1 oz) 10/31/2023 1:05 PM CDT Height 160 cm (5' 3) 08/31/2023 11:14 AM CDT Body Mass Index 29.77 08/31/2023 11:14 AM CDT Plan of Treatment Upcoming Encounters Date Type Department Care Team (Late st Contact Info) Description 11/04/2023 10:15 AM CDT Office Visit [facility] at [facility] [address] [facility] [place] [address] Carlyle Mora MD [address] [place] [address] 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 Ancillary Procedure [facility] [address] [place] [address] Health Maintenance Due Date Last Done Comments Tetanus booster 09/25/2018 09/25/2008, 03/26/[address] (for lung CA) ag e 50-80 12/07/2022 12/07/2021 COVID-19 vaccine series (2022- season) 2023 01/24/2023, 12/18/2021, 07/27/2021, Additional history exists Influenza for age 65+ 11/20/2023 01/05/2023 , 01/06/2021, 01/08/2020, Additional history exists BMI (ht and wt on same day) for age 18+ 08/30/2024 08/31/2023, 03/18/2023, 11/16/2021, Additional history exists Medicare Wellness for age 65+ 08/31/2024, 11/16/2021, 11/12/2020, Additional history exists Depression screening for age 12+ 09/01/2024 09/02/2023, 08/31/2023, 04/06/2023, Additional history exists Lipids for age 45-75 08/30/2028 08/31/2023, 12/02/2022, 04/12/2022, Additional history exists Colonoscopy through age 75 10/11/202810/11, 10/12/2023, 10/12/2023, Additional history exists Tdap Completed 09/25/2008 Pneumococcal series for age 65+ Completed 6, 12/19/2013 Hepatitis C screening for ag e 18-79 Completed 11/08/2018 DEXA/DXA scan for age 65+ Completed 2021, 10/25/2016, 09/28/2013, Additional history exists Zoster (shingles) series for age 50+ Completed 12/22/2022, 09/15/2022, 06/26/2012 Procedures Procedure Name Priority Date/Time Associated Diagnosis Comments ESOPHAGOGASTRODUODENOSCOPY Routine 11/03 7:58 AM CDT Abdominal pain, epigastric Dysphagia, unspecified type Gastric reflux PATH TISSUE EXAM Routine 10/12/2023 9:31 AM CDT Screening for colon cancer Polyp of colon, unspecified part of colon, unspecified type Diverticulosis of large intestine without hemorrhage COLONOSCOPY 10/12/2023 8:41 AM CDT COLONOSCOPY SCREENING Routine 10/12/2023 8:36 AM CDT Screening for colon cancer XR HIP 1 VIEW W PELVIS RIGHT Routine 02/2024 1:04 PM CDT Hip pain, right Chronic right SI joint pain XR SACROILIAC JOINT 3 VIEWS BILATERAL Routine 08/31/2023 1:04 PM CDT Hip pain, right Chronic right SI joint pain BASIC METABOLIC PANEL Routine 08/31/2023 12:46 PM CDT Elevated BP without diagnosis of hypertension LIPID PANEL W REFLEX MEASURE D LDL Routine 08/31/2023 12:46 PM CDT Hyperlipidemia, unspecified hyperlipidemia type CT CHEST SCREENING LOW DOSE WO CONTRAST Routine 12/07/2021 2:07 PM CDT Smokes less than 1 pack a day with greater than 20 pack year history XR DXA BONE DENSITY 2 SITES AXIAL Routine 11/18/2021 11:23 AM CDT Osteopenia, unspecified location Other specified disorders of bone density and structure, other site ANTI HCV Routine 11/08/2018 1:59 PM CDT Need for hepatitis C screening test from Last 3 Months or Most Recently Relevant to Health Maintenance Results * PATH TISSUE EXAM (10/12/2023 9:31 AM CDT) Case Report Pathology Report ?Case: [id number] ? Authorizing Provider: ??Carlyle Mora MD ?? Collected: ? 10/12/2023 0931 ? Ordering Location: ? [facility] ?? Received: ?10/12/2023 1203 ? Clinic ? Pathologist: ? Shahbaz, Arsalan, MD ? Specimens: ?? A) - Cecal Polyp ? B) - Transverse Colon Polyp ? 10/17/2023 9:21 AM CDT [facility] Final Diagnosis A) COLON, CECUM, POLYPECTOMIES: 1. Tubular adenomas (2) 2. Negative for high grade dysplasia 3. Per the colonoscopy report: ?? a. Polyp sizes: 3 mm - 8 mm ?? b. Resection: Complete ?? c. Retrieval: Complete B) COLON, TRANSVERSE, POLYPECTOMIES: 1. Tubular adenomas (3) 2. Negative for high grade dysplasia 3. Per the colonoscopy report: ?? a. Polyp sizes: 3 mm ?? b. Resection: Complete ?? c. Retrieval: Complete 10/17/2023 9:21 AM CDT [facility] Clinical Information Screening colonoscopy 10/17/2023 9:21 AM CDT [facility] Gross Description A) Received in formalin is a 12 mm reed-brown rubbery polyp. The apparent base is inked blue and the polyp is serially sectioned. Also in the container are two reed mucosal fragments ranging from 3 mm to 4 mm in greatest dimension. The specimen is entirely submitted in a single cassette. It is labeled with the patient's name and designated A. B) Received in formalin are 3 reed mucosal fragments ranging from 4 mm to 5 mm in greatest dimension, which are entirely submitted in one cassette. It is labeled with the patient's name and designated B. Alma Sadie Howard 10/13/2023 3:41 PM 10/17/2023 9:21 AM CDT [facility] Microscopic Description The final diagnosis is based on microscopic examination of appropriate sections of all specimens. 10/17/2023 9:21 AM CDT [facility] Additional Information Interpreted at [facility] - [address] [facility] [address], [place] [address] 10/17/2023 9:21 AM CDT [facility] Other (Cecal Polyp) Non-Blood / Unknown 10/12/2023 9:31 AM CDT 10/12/2023 12:03 PM CDT Specimen (specimen) (Transverse Colon Polyp) Non-Blood / Unknown 10/12/2023 9:34 AM CDT 10/12/2023 12:03 PM CDT Carlyle Mora MD PATHOLOGY/CYTOLOG Y [facility] [address] [place] [address], * COLONOSCOPY (10/12/2023 8:41 AM CDT) 10/12/2023 8:41 AM CDT Narrative Transcriptions Carlyle Mora MD - 10/12/2023 9:50 AM CDT Patient Name: Tierra Levin Procedure Date: 10/12/2023 Gender: Female Date of : 1950 Admit Type: Outpatient Procedure: Colonoscopy Proceduralist: Carlyle Mora MD , Soheila Beckett, RN (Nurse), Jessica Lewis (Nurse) Indications/Pre-Op Diagnosis: Screening for colorectal malignant neoplasm, Last colonoscopy: July 2013 Medications: Fentanyl 100 micrograms IV, Midazolam 2 mgIV Procedure Description: The patient had risks, benefits and alternatives explained to andgave informed consent. The patient had a stable cardiopulmonary status and judged an adequate candidate for conscious sedation. The [id number] was passed through the anus and advanced to the cecum, identified by appendiceal orifice and ileocecal valve. Thecolonoscopy was performed without difficulty. The patient tolerated the procedure well. The quality of the bowel preparation was good. The ileocecal valve, appendiceal orifice, and rectum were photographed. Complications: No immediate complications. Estimated Blood Loss & Specimen: Estimated blood loss: none. Specimen collected - Yes and sent to Laboratory Findings: The perianal and digital rectal examinations were normal. Multiple medium-mouthed and small-mouthed diverticula were found inthe sigmoid colon and descending colon. There was narrowing of the colonin association with the diverticular opening. Two sessile polyps were found in the cecum. The polyps were 3 to 8 mmin size. These polyps were removed with a cold snare. Resection and retrieval were complete. Three sessile polyps were found in the transverse colon. The polypswere 3 mm in size. These polyps were removed with a cold snare. Resectionand retrieval were complete. The exam was otherwise without abnormality. Impressions/Post-Op Diagnosis: - Moderate diverticulosis in the sigmoid colon and in the descending colon. There was narrowing of the colon in association with the diverticular opening. - Two 3 to 8 mm polyps in the cecum, removed with a cold snare.Resected and retrieved. - Three 3 mm polyps in the transverse colon, removed with a coldsnare. Resected and retrieved. - The examination was otherwise normal. Recommendation: - Patient has a contact number available for emergencies. The signsand symptoms of potential delayed complications were discussed with the patient. Return to normal activities tomorrow. Written discharge instructions were provided to the patient. - Resume previous diet. - Continue present medications. - Await pathology results. - Repeat colonoscopy is recommended. The colonoscopy date will be determined after pathology results from today's exam become available for review. - Patient's sedation for a repeat study will require Anesthesia staff assistance. Moderate Sedation: A time out was performed before the procedure. Moderate (conscious) sedation was administered by the endoscopy nurse and supervised bythe endoscopist. The following parameters were monitored: oxygensaturation, heart rate, blood pressure, EKG, CO2, respiratory rate, adequacy of pulmonary ventilation and reponse to care. Please refer to the patient's medical record flowsheets and nursing notes for moderate sedation details. Total physician intraservice time was 24 minutes. Carlyle Mora MD 10/12/2023 9:50:10 AM This report has been signed electronically. Note Initiated On: 10/12/2023 8:41 AM Procedure Code(s): --- Professional --- 43887, Colonoscopy, flexible; with removalof tumor(s), polyp(s), or other lesion(s) bysnare technique Diagnosis Code(s): --- Professional --- Z12.11, Encounter for screening formalignant neoplasm of colon D12.0, Benign neoplasm of cecum D12.3, Benign neoplasm of transverse colon (hepatic flexure or splenic flexure) K57.30, Diverticulosis of large intestine without perforation or abscess withoutbleeding CPT copyright 2022 [employer]. All rights reserved. The codes documented in this report are preliminary and upon airborne operations superintendent reviewmay be revised to meet current compliance requirements. Scope In: 9:19:16 AM Scope Withdrawal Time 0 hours 13 minutes 49 seconds Scope Out: 9:41:41 AM Carlyle Mora MD PROCEDURE ORD * XR HIP 1 VIEW W PELVIS RIGHT (08/31/2023 1:04 PM CDT) Anatomical Region Laterality Modality HIPS, HIPR, Pelvis Computed Radi ography 09/01/2023 2:26 PM CDT Impressions 09/01/2023 2:26 PM CDT Advanced osteoarthritis of the right hip relative to the left. No fracture or dislocation. Dictated by Juliano Mazariegos MD @ 09/01/2023 2:26:21 PM (Electronically Signed) Narrative 09/01/2023 2:26 PM CDT For Patients: ??As a result of the Cures Act, medical imaging exams and procedure reports are released immediately into your electronic medical record. ??You may view this report before your referring provider. ??If you have questions, please contact your health care provider. INDICATION: Chronic right sacroiliac joint pain. Chronic right hip pain. TECHNIQUE: AP pelvis and single view of the right hip. FINDINGS: Advanced osteoarthritis of the right hip with near [id number], hypertrophic spurring, sclerosis, and geode formation. Less pronounced mild to moderate degenerative arthritic change of the left hip. The visualized symphysis pubis and sacroiliac joints are unremarkable. No fracture or dislocation. Procedure Note Juliano Mazariegos MD - 09/01/2023 For Patients: As a result of the Cures Act, medical imagingexams and procedure reports are released immediately into your electronicmedical record. You may view this report before your referring provider.If you have questions, please contact your health care provider. INDICATION: Chronic right sacroiliac joint pain. Chronic right hip pain. TECHNIQUE: AP pelvis and single view of the right hip. FINDINGS: Advanced osteoarthritis of the right hip with near [id number],hypertrophic spurring, sclerosis, and geode formation. Less pronouncedmild to moderate degenerative arthritic change of the left hip. Thevisualized symphysis pubis and sacroiliac joints are unremarkable. Nofracture or dislocation. IMPRESSION: Advanced osteoarthritis of the right hip relative to the left. No fractureor dislocation. Dictated by Juliano Mazariegos MD @ 09/01/2023 2:26:21 PM (Electronically Signed) Yolanda Reilly DO GENERAL IMAGING * XR SACROILIAC JOINT 3 VIEWS BILATERAL (08/31/2023 1:04 PM CDT) Anatomical Region Laterality Modality Pelvis, SI JOINTS Computed Radio graphy 09/01/2023 2:24 PM CDT Impressions 09/01/2023 2:24 PM CDT Negative sacroiliac joints. Degenerative arthritis of the hips. Dictated by Juliano Mazariegos MD @ 09/01/2023 2:24:14 PM (Electronically Signed) Narrative 09/01/2023 2:24 PM CDT For Patients: ??As a result of the Cures Act, medical imaging exams and procedure reports are released immediately into your electronic medical record. ??You may view this report before your referring provider. ??If you have questions, please contact your health care provider. INDICATION: Right-sided hip pain. Chronic right SI joint pain. TECHNIQUE: Three views of the sacroiliac joints. FINDINGS: The sacroiliac joints are symmetric and intact. There is no evidence for any significant degenerative or erosive arthritic change of the sacroiliac joints. There appears to be some degree of skeletal demineralization. Degenerative arthritis of the hips right greater than left. Procedure Note Juliano Mazariegos MD - 09/01/2023 For Patients: As a result of the Cures Act, medical imagingexams and procedure reports are released immediately into your electronicmedical record. You may view this report before your referring provider.If you have questions, please contact your health care provider. INDICATION: Right-sided hip pain. Chronic right SI joint pain. TECHNIQUE: Three views of the sacroiliac joints. FINDINGS: The sacroiliac joints are symmetric and intact. There is no evidence forany significant degenerative or erosive arthritic change of the sacroiliacjoints. There appears to be some degree of skeletal demineralization.Degenerative arthritis of the hips right greater than left. IMPRESSION: Negative sacroiliac joints. Degenerative arthritis of the hips. Dictated by Juliano Mazariegos MD @ 09/01/2023 2:24:14 PM (Electronically Signed) Yolanda Reilly DO GENERAL IMAGING * (ABNORMAL) LIPID PANEL W REFLEX MEASURED LDL (08/31/2023 12:46 PM CDT) CHOLESTEROL,TOTAL 228(H) 100 - 199 mg/dL 08/31/2023 11:50 PM CDT [facility] Comment: Cholesterol, Total Reference Ranges Desirable <200 mg/dL Borderline 200-239 mg/dL High >=240 mg/dL TRIGLYCERIDES 326(H) <150 mg/dL 08/31/2023 11:50 PM CDT [facility] HDL CHOLESTEROL 72 >40 mg/dL 11:50 PM CDT [facility] NON-HDL CHOLESTEROL 156(H) <145 mg/dl 08/31/2023 11:50 PM CDT [facility] CHOL/HDL RATIO 3.17 <4.50 08/31/2023 11:50 PM CDT [facility] LDL CHOLESTEROL 91 <=130 mg/dL 08/31/2023 11:50 PM CDT [facility] [facility] VLDL CHOLESTEROL 65(H) <=30 mg/dL 08/31/2023 11:50 PM CDT [facility] PROVIDER ORDERED STATUS RANDOM 08/31/2023 11:50 PM CDT [facility] Blood BLOOD SPECIMEN / Unknown Venipuncture / Unknown 08/31/2023 12:46 PM CDT 08/31/2023 12:46 PM CDT Yolanda Reilly DO CHEMISTRY [facility] [address] [place] [id number], * (ABNORMAL) BASIC METABOLIC PANEL (08/31/2023 12:46 PM CDT) [facility] SODIUM 139 136 - 145 mmol/L 08/31/2023 11:50 PM CDT [facility] POTASSIUM 4.9 3.5 - 5.1 mmol/L 08/31/2023 11:50 PM CDT [facility] CHLORIDE 101 98 - 107 mmol/L 08/31/2023 11:50 PM CDT [facility] CO2,TOTAL 26 22 - 29 mmol/L 08/31/2023 11:50 PM CDT [facility] ANION GAP 12 5 - 18 08/31/2023 11:50 PM CDT [facility] GLUCOSE 92 70 - 99 mg/dL 08/31/2023 11:50 PM CDT [facility] CALCIUM 10.1 8.8 - 10.2 mg/dL 08/31/2023 11:50 PM CDT [facility] BUN 15 8 - 23 mg/dL 08/31/2023 11:50 PM CDT [facility] CREATININE 0.62 0.50 - 0.90 mg/dL 08/31/2023 11:50 PM CDT [facility] BUN/CREAT RATIO 24(H) 10 - 20 11:50 PM CDT [facility] eGFR >90 >90 mL/min/1.7 3m2 08/31/2023 11:50 PM CDT [facility] Comment:As of 2021, eG FR is calculated by the CKD-EPI creatinine equation without race adjustment. ??eGFR can be influenced by muscle mass, exercise, and diet. ??The reported eGFR is an estimation only and is only applicable if the renal function is stable. Blood BLOOD SPECIMEN / Unknown Venipuncture / Unknown 08/31/2023 12:46 PM CDT 08/31/2023 12:46 PM CDT Yolanda Reilly DO CHEMISTRY [facility] [address] [place] [address], * CT CHEST SCREENING LOW DOSE WO CONTRAST (12/07/2021 2:07 PM CDT) Anatomical Region Laterality Modality Computed Tomogra phy Impressions 12/08/2021 12:02 PM CDT 1. No significant pulmonary pathology or lymphadenopathy. 2. Atherosclerotic disease, degenerative spine with kyphosis and nonobstructing calculi left kidney. Lung rads category 1: Negative. No pulmonary nodules. Recommend continued annual screening with LD CT in 12 months. Please note that all CT scans at this facility use dose modulation, iterative reconstruction and/or weight-based dosing when appropriate to reduce radiation dose to as low as reasonably achievable. ?? Dictated by: Sadie Barclay MD @12/08/2021 7:26:07 AM/CRL:jose armando Narrative 12/08/2021 12:02 PM CDT For Patients: As a result of the Century Cures Act, medical imaging exams and procedure reports are released immediately into your electronic medical record. ??You may view this report before your referring provider. ?? If you have questions, please contact your health care provider. CHEST SCREENING LOW DOSE WITHOUT CONTRAST, 12/07/2021 INDICATION: Lung cancer screening. TECHNIQUE: CT chest without contrast. COMPARISON: None. FINDINGS: Cardiovascular structures: Heart size is normal. Thoracic aorta and main pulmonary artery are normal in caliber. Atherosclerotic calcification of the coronary arteries and thoracic aorta. Mediastinum and lakia: No sign of mass or adenopathy. Thyroid normal. Lungs: Clear. No pulmonary nodules, mass or consolidation. Airways are patent. Pleura and pericardium: No effusions. Chest wall and axilla: No mass or adenopathy. Bones: Degenerative thoracic spine with prominent kyphosis. No lytic or osteoblastic lesions. Upper abdomen: 5 mm nonobstructing calculi inferior left kidney. April Chapman NP CT * XR DXA BONE DENSITY 2 SITES AXIAL (11/18/2021 11:23 AM CDT) Anatomical Region Laterality Modality Spine, HIPS, HIPL, HIPR Other Impressions 11/26/2021 12:46 PM CDT Normal bone density. RECOMMENDATIONS: The National Osteoporosis Foundation recommends pharmacologic treatment for patients with T-scores of -2.5 or less, patients with prior history of fragility fractures, or patients with 10-year probability of greater than 3% at hips or greater than 20% of suffering major osteoporotic fractures. Recommend continued optimization of calcium and vitamin D intake through dietary means and/or supplementation and regular exercise. Repeat scan recommended in 3-5 years. Camila Duque PA-C [facility] 11/26/2021 Narrative 11/26/2021 12:46 PM CDT For Patients: Results are automatically released to your [facility] ([facility]) account once available, in compliance with federal regulations. This means that you may see your results before your provider has had a chance to review them. Please allow 2-3 business days for your provider to comment on the results. XR DXA Bone Mineral Density (BMD) EXAM LOCATION: [address] [address] PATIENT NAME: Tierra Levin DATE OF : 1950 EXAM DATE: 11/18/2021 REQUESTING PROVIDER: Yolanda Reilly, DO GENDER AT : female HEIGHT: 5' 3.07 (11/16/2021) WEIGHT: ??155 lb (11/16/2021) MENOPAUSAL STATUS: Postmenopausal RACE/ETHNICITY: White RISK FACTORS: Height Loss (2 inches or more), Smoking (current) and White Race CURRENT MEDICATION FOR BONE LOSS: NONE INDICATION: Follow-up of existing osteopenia and Post-Menopause COMPARISON DATE(S): 2016 DXA scans are compared to prior studies for a patient only when the two (or more) studies were performed on the same scanner. It is not possible to compare data generated on one scanner to data from another because there are not standards in DXA equipment. This applies even if the two scanners are made by the same garage supervisor. PROCEDURE: Dual-energy x-ray absorptiometry performed with routine technique. Reporting is completed in the form of a T-score. The T-score represents the standard deviation from peak bone mass based on young healthy adult. A Z-score is used for diagnosis in premenopausal women, and for men under the age of 50. FINDINGS: RESULT LUMBAR SPINE L1 - L4 BMD: 1.131 g/cm2 T-Score: - 0.4 Z-Score: + 1.1 Change from prior in 2017: ??Decrease 1.5%. RESULTS FEMUR Left femoral neck BMD: 0.932 g/cm2 T-Score: - 0.8 Z-Score: + 1.0 Change from prior in 2017: ??Decrease 5.3%. Right femoral neck BMD: 0.969 g/cm2 T-Score: - 0.5 Z-Score: + 1.2 Change from prior in 2017: ??Decrease 8.5%. Left hip BMD: 0.884 g/cm2 T-Score: - 1.0 Z-Score: + 0.5 Change from prior in 2017: ??Decrease 5.3%. Right hip BMD: 0.888 g/cm2 T-Score: - 0.9 Z-Score: + 0.6 Change from prior in 2017: ??Decrease 5.5%. WHO criteria: Normal: T-score at or above -1 SD Osteopenia: T-score between -1.1 and -2.4 SD Osteoporosis: T-score at or below -2.5 SD Yolanda Reilly DO DEXA * ANTI HCV (11/08/2018 1:59 PM CDT) Pathologist [facility] HEPATITIS C ANTIBODY Non-React robel Non-React robel 11/08/2018 9:00 PM CDT [facility] TR[facility] LABORATORY Comment:Antibodies to HCV no t detected; does not exclude the possibility of exposure to HCV. Blood BLOOD SPECIMEN / Unknown Venipuncture / Unknown 11/08/2018 1:59 PM CDT 11/08/2018 2:00 PM CDT Yolanda Reilly DO [facility] [address] [place] [address], [place] from Last 3 Months or Most Recently Relevant to Health Maintenance Care Teams Medical Donation Professional Relationship Specialty Start Date End Date Yolanda Reilly DO [address] [place] [address] PCP - General Family Practice 10/29/20
--- NOTE | 2023-11-04 11:16 | W.ANESCHARGE ---
Anesthesia Charges Start Date/Time Anesthesia Start Date: 11/04/23 Anesthesia Start Time: 11:03 Stop Date/Time Anesthesia Stop Date: 11/04/23 Anesthesia Stop Time: 11:24 Summary Extremes of Age - Over 70 or under 1: MDA
--- NOTE | 2023-11-04 11:27 | W.ANESCHARGE ---
Anesthesia Charges Start Date/Time Anesthesia Start Date: 11/04/23 Anesthesia Start Time: 11:03 Stop Date/Time Anesthesia Stop Date: 11/04/23 Anesthesia Stop Time: 11:24
== END 2023-11-04 10:07 | disposition home or self-care (01) ==
PROVIDERS: PCP Family Medicine; Visit Provider Internal Medicine Gastroenterology
DX: R13.10 Dysphagia, unspecified (principal); K21.9 Gastro-esophageal reflux disease without esophagitis; R12 Heartburn
CPT/HCPCS: 00731; 43239; 88305; 99100; J2704

== ENCOUNTER 2024-02-08 07:06 | Day surgery (SDC) | payer MEDICARE, BC, SELFPAY ==
[2024-02-08] VITALS (25 sets, daily range): BP systolic 86–136; BP diastolic 43–97; PULSE 57–83; RESP 14–20; TEMP 36–37.3; O2SAT 92–100; BMI 29.9
--- OUTSIDE RECORDS SUMMARY | 2024-02-08 07:09 | XMS_ITS | Clinical Summary ---
Author Organization [facility] Address [place], [place] [address] Care Team Providers Care Sealer Sander Name Role Phone IrasemahoangYolanda Primary Care Provider [phone] Allergies No known active allergies Medications Medication Sig Dispensed Refills Start Date End Date Status vitamin B complex (B-50 COMPLEX) tablet Take 1 tablet by mouth once daily. 0 5 Active cyanocobalamin (VITAMIN B-12) 1,000 mcg tablet Take 1 tablet by mouth once daily. Unsure of dose. 0 5 Active glucosamine-chondro itin, 500-400 mg, (COSAMIN DS 500/400) 500-400 mg cap Take 1 capsule by mouth once daily. 0 8 Active famotidine (PEPCID) 20 mg tablet Take 20 mg by mouth two times daily. 0 0 Active Lactobacillus rhamnosus GG 5 billion cell chew Chew by mouth. 0 2 Active Synthroid 100 mcg tabletIndications:H ypothyroidism, unspecified type TAKE ONE TABLET BY MOUTH EVERY DAY 90 Tablet 2 4 Active acetaminophen (TYLENOL EXTRA STRGTH) 500 mg tablet Take 500 mg by mouth. 1 in the am, 1 at noon and 2 at bedtime Max acetaminophen dose: 4000mg in 24 hrs. Active miscellaneous medical supply (Blood Pressure Cuff) miscIndications:Anabella vated BP without diagnosis of hypertension As directed. Automatic home blood pressure cuff 1 Each 4 Active triamcinolone (ARISTOCORT) 0.5 % ointmentIndications :Vaginal itching Apply peasized amount to perineum nightly x 2 weeks, then decrease to twice a week 120 g 1 4 Active rosuvastatin (CRESTOR) 10 mg tabletIndications:H yperlipidemia, unspecified hyperlipidemia type TAKE ONE TABLET (10 MG) BY MOUTH NIGHTLY AT BEDTIME 90 Tablet 2 4 Active medication order composer 5 mg. THC gummy Active polyethylene glycol-electrolyte (GOLYTELY) 236-22.74-6.74 -5.86 gram suspensionIndicatio ns:Encounter for screening colonoscopy Drink 2 liters (1/2 of prep) the day before colonoscopy and drink 2 liters (other 1/2 of prep) 6 hours before colonoscopy appointment. 4000 mL 4 01/25/20 24 Discontinu ed(*Med complete/R egimen complete/L evel of care change) omeprazole (PRILOSEC) 40 mg Delayed-Release capsuleIndications: Motility disorder, esophageal TAKE ONE CAPSULE BY MOUTH EVERY DAY BEFORE A MEAL 60 Capsule 2 4 01/25/20 24 Discontinu ed(*Med complete/R egimen complete/L evel of care change) Active Problems Problem Noted Date Diagnosed Date Colon polyp 10/18/2023 Overview (10/18/2023): Colonoscopy 09/2023 TA, repeat in 5 years Osteopenia of multiple sites 10/05/2016 DDD (degenerative disc disease), lumbar 08/27/19 16 Gastritis 01/09/2015 Overview (01/09/2015): EGD 12/2014 gastritis, duodenitis Diverticulosis of large intestine without hemorr ty 12/11/2014 Routine adult health maintenance 07/19/2013 Overview (07/19/2013): Colonoscopy 07/2013 diverticulosis repeat in 10 years Mixed hyperlipidemia 09/05/2007 Unspecified vitamin deficiency 09/02/2006 Stricture and stenosis of esophagus 08/29/2006 Overview (08/29/2006): last endoscopy 2003, repeat 2009 Esophageal reflux 08/29/2006 Tobacco use disorder 08/29/2006 Insomnia, unspecified 08/29/2006 Palpitations 08/29/2006 Routine general medical exam ination at a health care facility 08/29/2006 Unspecified hypothyroidism Other and unspecified hyperlipidemia Cervicalgia Resolved Problems Problem Noted Date Diagnosed Date Resolved Date Mixed hyperlipidemia 09/05/2007 009 Mixed hyperlipidemia 09/05/2007 009 Encounters Date Type Department Care Team Description 01/26/2024 Orders Only [facility] [address] [place] [address] Yolanda Reilly DO 1 scan: (1-Ord) NFLD-EKG-01/25/24 01/25/2024 8:45 AM ELECTRIC ARC WELDER Office Visit [facility] [address] [facility] [place] [address] Yolanda Reilly DO Preoperative Exam (02/08/24, [facility] Dr. Cavazos) 01/25/2024 Travel 01/05/2024 8:40 AM CDT Ancillary Procedure [facility] [address] [place] [address] 01/05/2024 Travel 12/23/2023 Telephone [facility] [address] [place] [address] Yolanda Reilly DO Referral (Consult) 12/19/2023 Telephone [facility] [address] [place] [address] Yolanda Reilly DO Referral (Hip Replacement) 12/19/2023 Refill [facility] [address] [place] [address] Yolanda Reilly DO Refill Request (Rosuvastatin) from Last 3 Months Immunizations Name Administration Dates Next Due AMB INFLUENZA IIV3 (AGE 65+ YRS) PF (Flu Clinic Only) 12/20/2018,12/22/2017,01/11/2017 Amb Influenza, Inactivated A IIV4 (Age 65+ Years) Preserv Free 01/08/2020 COVID-19 vaccine (Moderna 100mcg/0.5mL) PF, MDV 02/04/2021 COVID-19 vaccine (Moderna 50mcg/0.5mL) 12YO+ BIVALENT PF, MDV 12/18/2021 Influenza, High-dose Inactivated 024,03/19/2016,02/25/2015,2013 Influenza, High-dose Quadriv alent Inactivated 01/05/2023,01/06/2021 Pneumococcal Poly,23-Valent (Pneumovax) 12/19/2013 Pneumococcal conj 13-Valent (Prevnar 13) 10/02/2015 Td (Age >=7 Years) 03/26/1998 Tdap 09/25/2008 [...] drink = 0.6 oz pur e alcohol) once month PHQ-2 Answer Date Recorded PHQ-2 TOTAL SCORE 0 08/31/2023 Social Connections Answer Date Recorded Do you often feel lonely or isolated from those around you? 0 04/06/2023 Alcohol Use Answer Date Recorded [...] file 04/06/2023 Food Insecurity Answer Date Recorded Do you worry your food will run out before you are able to buy more? 1 04/06/2023 Transportation Needs Answer Date Record ed Does lack of transportation keep you from medica l appointments? 1 04/06/2023 Does lack of transportation keep you from work, meetings or getting things that you need? 1 04/06/2023 Housing Stability Answer Date Recorded What is your housing situation today? 1 04/06/2023 Sex and Gender Information Value [...] Sign Reading Time Taken Comments Blood Pressure 132/85 01/25/2024 8:43 AM ELECTRIC ARC WELDER Pulse 71 01/25/2024 8:43 AM ELECTRIC ARC WELDER Temperature 37.1 C (98.7 F) 04/12/2023 2:16 PM ELECTRIC ARC WELDER Respiratory Rate 14 10/12/2023 10:00 AM CDT Oxygen Saturation 96% 01/25/2024 8:43 AM ELECTRIC ARC WELDER Inhaled Oxygen Concentration - - Weight 76.7 kg (169 lb) 01/25/2024 8:43 AM ELECTRIC ARC WELDER Height 160 cm (5' 3) 01/25/2024 8:43 AM ELECTRIC ARC WELDER Body Mass Index 29.94 01/25/2024 8:43 AM ELECTRIC ARC WELDER Plan of Treatment Upcoming Encounters Date Type Department Care Team (Late st Contact Info) Description 03/19/2024 11:00 AM ELECTRIC ARC WELDER Ancillary Procedure [facility] [address] [place] [address] Health Maintenance Due Date Last Done Comments Tetanus booster 09/25/2018 09/25/2008, 03/26/[address] (for lung CA) ag e 50-80 12/07/2022 12/07/2021 RSV vaccine for adults or (1 - 1-dose 75+ series) 05/31/2023 Medicare Wellness for age 65+ 08/31/2024, 11/16/2021, 11/12/2020, Additional history exists Depression screening for age 12+ 09/01/2024 09/02/2023, 08/31/2023, 04/06/2023, Additional history exists BMI (ht and wt on same day) for age 18+ 01/24/2025 01/25/2024, 08/31/2023, 03/18/2023, Additional history exists Lipids for age 45-75 [...] for age 50+ Completed 12/22/2022, 09/15/2022, 06/26/2012 COVID-19 vaccine series Completed 12/05/19 24, 01/24/2023, 12/18/2021, Additional history exists Influenza for age 65+ Completed 01/06/2024 , 01/05/2023, 01/06/2021, Additional history exists Procedures Procedure Name Priority Date/Time Associated Diagnosis Comments EKG 12 LEAD Routine 01/26/2024 1:26 PM ELECTRIC ARC WELDER Pre-op exam TX READING EKG - NO CHARGE, COMP ONLY Routine 01/26/2024 1:23 PM ELECTRIC ARC WELDER Pre-op exam HEMOGLOBIN Routine 01/25/2024 9:33 AM ELECTRIC ARC WELDER Pre-op exam XR MAMMO BILAT SCREENING Routine 01/05/2024 8:45 AM CDT Visit for screening mammogram COLONOSCOPY SCREENING Routine 10/12/2023 8:36 AM CDT Screening for colon cancer LIPID PANEL W REFLEX MEASURED LDL Routine 08/31/2023 12:46 PM CDT Hyperlipidemia, [...] Recently Relevant to Health Maintenance Results * EKG 12 LEAD (01/26/2024 1:26 PM ELECTRIC ARC WELDER) Yolanda Reilly DO EKG ORD * TX READING EKG - NO CHARGE, COMP ONLY (01/26/2024 1:23 PM ELECTRIC ARC WELDER) Yolanda Reilly DO PB - PROVIDER READ INGS * HEMOGLOBIN (01/25/2024 9:33 AM ELECTRIC ARC WELDER) HEMOGLOBIN 13.4 11.7 - 15.5 g/dL [facility] Blood BLOOD SPECIMEN / Unknown 01/25/2024 9:33 AM ELECTRIC ARC WELDER 01/25/2024 9:35 AM ELECTRIC ARC WELDER Yolanda Reilly DO HEMATOLOGY [employer] [facility] [address] [place] [address], [facility] [address] [place] [address] * XR MAMMO BILAT SCREENING (01/05/2024 8:45 AM CDT) Anatomical Region Laterality Modality BREASTS, Breast Left, Breast Right Bilateral Mammography Impressions 01/06/2024 4:42 PM CDT There is no radiographic evidence for malignancy. Recommend annual mammograms. MAMMOGRAM ASSESSMENT: ACR 1 Negative PATIENTS: You will also receive a letter with your examination results in an easy to read format. If you have questions about your results, please contact your referring provider. Narrative 01/06/2024 4:42 PM CDT For Patients: As a result of the Century Cures Act, medical imaging exams and procedure reports are released immediately into your electronic medical record. You may view this report before your referring provider. If you have questions, please contact your health care provider. XR MAMMO BILAT SCREENING [[id number]] CLINICAL HISTORY: This is an asymptomatic 73 y.o. patient. INDICATION FOR EXAM: Mammogram Screening. TECHNIQUE: CC & MLO views were obtained. This study was evaluated with the assistance of Computer-Aided Detection. COMPARISON FILM: Yes 09/30/22 [facility] 09/08/21 [facility] FINDINGS: There are scattered areas of fibroglandular density. There are no dominant masses, suspicious micro calcifications or areas of architectural distortion. Yolanda Michelle Reilly DO MAMMO * COLONOSCOPY (10/12/2023 8:41 AM CDT) 10/12/2023 8:41 AM CDT Narrative Transcriptions Carlyle Mora MD - 10/12/2023 9:50 AM CDT Patient Name: Tierra Levin Procedure Date: 10/12/2023 Gender: Female Date of : 1950 Admit Type: Outpatient Procedure: Colonoscopy Proceduralist: Carlyle Mora MD , Soheila Beckett RN (Nurse), Jessica Lewis (Nurse) Indications/Pre-Op Diagnosis: Screening for colorectal malignant neoplasm, Last colonoscopy: July 2013 Medications: Fentanyl 100 micrograms IV, Midazolam 2 mgIV Procedure Description: The patient had risks, benefits and alternatives explained to andgave informed consent. The patient had a stable cardiopulmonary status and judged an adequate candidate for conscious sedation. The [id number] was passed through the anus and advanced [...] 8:41 AM Procedure Code(s): --- Professional --- 04146, Colonoscopy, flexible; with removalof tumor(s), polyp(s), or other lesion(s) bysnare technique Diagnosis Code(s): --- Professional --- Z12.11, Encounter for screening formalignant neoplasm of colon D12.0, Benign neoplasm of cecum D12.3, Benign neoplasm of transverse colon (hepatic flexure or splenic flexure) K57.30, Diverticulosis of large intestine without perforation or abscess withoutbleeding CPT copyright 2022 [employer] [place] [employer]. All rights reserved. The codes documented in this report are preliminary and upon still operator brandy reviewmay be revised to meet current compliance requirements. Scope In: 9:19:16 AM Scope Withdrawal Time 0 hours 13 minutes 49 seconds Scope Out: 9:41:41 AM Carlyle Mora MD PROCEDURE ORD * (ABNORMAL) LIPID PANEL W REFLEX MEASURED LDL (08/31/2023 12:46 PM CDT) CHOLESTEROL,TOTAL 228(H) 100 - 199 mg/dL 08/31/2023 11:50 PM CDT [facility] Comment: Cholesterol, Total Reference Ranges Desirable <200 mg/dL Borderline 200-239 mg/dL High >=240 mg/dL TRIGLYCERIDES 326(H) <150 mg/dL 08/31/2023 11:50 PM CDT [facility] HDL CHOLESTEROL 72 >40 mg/dL 11:50 PM CDT [facility] NON-HDL CHOLESTEROL 156(H) <145 mg/dl 08/31/2023 11:50 PM CDT [facility] CHOL/HDL RATIO 3.17 <4.50 08/31/2023 11:50 PM CDT [facility] LDL CHOLESTEROL 91 <=130 mg/dL 08/31/2023 11:50 PM CDT [facility] VLDL CHOLESTEROL 65(H) <=30 mg/dL 08/31/2023 11:50 PM CDT [facility] PROVIDER ORDERED STATUS RANDOM 08/31/2023 11:50 PM CDT [facility] Blood BLOOD SPECIMEN / Unknown Venipuncture / Unknown 08/31/2023 12:46 PM CDT 08/31/2023 12:46 PM CDT Yolanda Reilly DO [facility] [address] [place] [address], * CT CHEST SCREENING LOW DOSE WO [...] dose to as low as reasonably achievable. Dictated by: Sadie Barclay MD @12/08/2021 7:26:07 AM/PEBBLES:jose armando Narrative 12/08/2021 12:02 PM CDT For Patients: As a result of the 21st Century Cures Act, medical imaging exams and procedure reports are released immediately into your electronic medical record. You may view this report before your referring provider. If you have questions, please contact your [...] recommended in 3-5 years. Camila Duque PA-C [facility] 11/26/2021 Narrative 11/26/2021 12:46 PM CDT For Patients: Results are automatically released to your [facility] account once available, in compliance with federal regulations. This means that you may see your results before your provider has had a chance to review them. Please allow 2-3 business days for your provider to comment on the results. XR DXA Bone Mineral Density (BMD) EXAM LOCATION: [facility] [address] [facility] [address] PATIENT NAME: Tierra Levin DATE OF : 1950 EXAM DATE: 11/18/2021 REQUESTING PROVIDER: Yolanda Reilly DO GENDER AT : female HEIGHT: 5' 3.07 (11/16/2021) WEIGHT: 155 lb (11/16/2021) MENOPAUSAL STATUS: Postmenopausal RACE/ETHNICITY: White RISK FACTORS: Height Loss (2 inches or more), Smoking (current) and White Race CURRENT MEDICATION FOR BONE LOSS: NONE INDICATION: Follow-up of existing osteopenia and Post-Menopause COMPARISON DATE(S): 2017 DXA scans are compared to prior studies for a patient only when the two (or more) studies were performed on the same scanner. It is not possible to compare data generated on one scanner to data from another because there are not standards in DXA equipment. This applies even if the two scanners are made by the same pan washer hand. PROCEDURE: Dual-energy x-ray absorptiometry performed with routine [...] + 1.1 Change from prior in 2017: Decrease 1.5%. RESULTS FEMUR Left femoral neck BMD: 0.932 g/cm2 T-Score: - 0.8 Z-Score: + 1.0 Change from prior in 2017: Decrease 5.3%. Right femoral neck BMD: 0.969 g/cm2 T-Score: - 0.5 Z-Score: + 1.2 Change from prior in 2017: Decrease 8.5%. Left hip BMD: 0.884 g/cm2 T-Score: - 1.0 Z-Score: + 0.5 Change from prior in 2017: Decrease 5.3%. Right hip BMD: 0.888 g/cm2 T-Score: - 0.9 Z-Score: + 0.6 Change from prior in 2017: Decrease 5.5%. WHO criteria: Normal: T-score at or above -1 SD Osteopenia: T-score between -1.1 and -2.4 SD Osteoporosis: T-score at or below -2.5 SD Yolanda Reilly DO DEXA * ANTI HCV (11/08/2018 1:59 PM CDT) Pathologist [facility] HEPATITIS C ANTIBODY Non-React robel Non-React robel 11/08/2018 9:00 PM CDT [facility] Comment:Antibodies to HCV no t detected; does not exclude the possibility of exposure to HCV. Blood BLOOD SPECIMEN / Unknown Venipuncture / Unknown 11/08/2018 1:59 PM CDT 11/08/2018 2:00 PM CDT Yolanda Reilly DO S[facility] [address] [place] [address], from Last 3 Months or Most Recently Relevant to Health Maintenance Advance Directives Documents on File Type Date Recorded Patient Intelligence Engineer Expl anation Healthcare Directive 01/24/2024 024 Care Teams Sealer Sander Relationship Specialty Start Date End Date Yolanda Reilly DO [address] [place] [address] PCP - General Family Practice 10/29/20
[2024-02-08] MEDS: LACTATED RINGERS 1000 ML 1,000 ML 100 ML IV (07:20)
--- NOTE | 2024-02-08 07:43 | W.PM.H&PU ---
History & Physical Update History & Physical Update H&P Reviewed and patient assessed: No changes noted
--- NOTE | 2024-02-08 07:44 | CRLHL7_ITS ---
For Patients: As a result of the Cures Act, medical imaging exams and procedure reports are released immediately into your electronic medical record. You may view this report before your referring provider. If you have questions, please contact your health care provider. Indication: Right hip arthroplasty Technique: Two views of the right hip Comparison: Same day cross-table right hip Findings: Postsurgical changes of right hip arthroplasty are identified with near anatomic alignment noted. The hardware is intact without adjacent lucency. There is no acute fracture, dislocation or suspicious bony lesion. Degenerative changes are noted within the partially visualized left hip. Subcutaneous emphysematous changes are noted about the right thigh compatible with very recent postsurgical changes. There are no soft tissue radiopaque foreign bodies. Impression: Postsurgical changes of right hip arthroplasty without radiographic evidence of complication. Dictated by Jagdish Jones MD @ 02/09/2024 11:27:02 AM (Electronically Signed)
[2024-02-08] MEDS: SODIUM CHLORIDE 0.9 % (FLUSH) 10 ML SYRINGE IVF (08:06)
[2024-02-08] MEDS: ACETAMINOPHEN 500 MG TABLET 1000 MG PO ×3 (08:25→21:01)
[2024-02-08] MEDS: OXYCODONE (CR) 10 MG TAB.ER.12H PO (08:25)
[2024-02-08] MEDS: MIDAZOLAM HCL 1 MG/ML inj IVP (08:46)
[2024-02-08] MEDS: fentaNYL 100 MCG/2 ML inj IVP (08:46)
--- NOTE | 2024-02-08 08:54 | SUR.PREOP ---
TIME?OUT:?0962 PT/Liliana Santiago RN/Dr. Jorge MDA?VERIFICATION?OF?SURGICAL?SITE right hip,?PROCEDURE,?AND?CONSENT OBTAINED?PRIOR?TO?INVASIVE?PROCEDURE.
--- NOTE | 2024-02-08 09:15 | CRLHL7_ITS ---
For Patients: As a result of the Cures Act, medical imaging exams and procedure reports are released immediately into your electronic medical record. You may view this report before your referring provider. If you have questions, please contact your health care provider. HISTORY: Right total hip arthroplasty. TECHNIQUE: One view of the pelvis intraoperatively. COMPARISON: No prior. FINDINGS: Single spot film demonstrates an intact right total hip arthroplasty. Dictated by Arnie Vivas MD @ 02/09/2024 9:40:50 AM (Electronically Signed)
[2024-02-08] MEDS: CEFAZOLIN 2 GM in 0.9 % SODIUM CHLORIDE Mini-bag 100 ML IVPB ×2 (09:35→15:51)
[2024-02-08] MEDS: TRANEXAMIC ACID 100 MG/ML INJ 1000 MG IV (09:37)
--- NOTE | 2024-02-08 09:59 | P.NB_ITS ---
Nerve Block Nerve Block Time Seen by Provider: 08:44 Date Seen: 02/08/24 Type of block requested by surgeon for post-operative analgesia: DARY/LFCN Side: right Time out performed: Yes Verification of patient name: Yes Verification of date of : Yes Site marking: site marked Name of person performing procedure: Jorge Continuous monitoring Was continuous monitoring of O2 sat, B/P, community services manager, recorded every 15 minutes?: Yes Procedure Checklist: sterile prep, needles and gloves Ultrasound guided. Images saved: Yes Medications given in 5ml increments after negative aspiration: Ropivicaine %: 0.5 mL: 30 Needle gauge: 20 Precedex (mcg): 25 Patient tolerated procedure well: Yes Additional comments: Needle noted below psoas tendon needle noted adjacent to LFCN Block Charges Block Charge (with Pro Fee): Other Periph Nerve Block Use of Ultrasound Machine for Block: Yes- US Guidance/pain block
--- NOTE | 2024-02-08 09:59 | W.ANESCHARGE ---
Anesthesia Charges Start Date/Time Anesthesia Start Date: 02/08/24 Anesthesia Start Time: 09:09 Stop Date/Time Anesthesia Stop Date: 02/08/24 Anesthesia Stop Time: 11:17 Summary Extremes of Age - Over 70 or under 1: MDA
--- NOTE | 2024-02-08 10:54 | P.ORPRC_ITS ---
Procedure Note Date of procedure: 02/08/24 Procedure: PREOPERATIVE DIAGNOSIS: 1. Right hip osteoarthritis, severe, primary POSTOPERATIVE DIAGNOSIS: 1. Right hip osteoarthritis, severe, primary PROCEDURE: 1. Right total hip arthroplasty-anterior approach 2. [id number] - intraoperative fluoroscopy up to 1 hour. SURGEON: Ac Nassar MD. VOLCANOLOGY PROFESSOR: Chaz Verma PA-C; ALANNA Frausto - Of note, a skilled assistant professor of drama was critical for this case to aid in patient positioning, tissue retraction, limb manipulation/positioning, and closure. ANESTHESIA: General endotracheal anesthetic EBL: 300 mL IMPLANTS: DePuy J&J uncemented total hip [place] cup size 48, hole eliminator, +4 neutral liner Actis stem, high offset, size 6 +1 mm ceramic 32mm head COMPLICATIONS: None evident INDICATIONS: The patient is a pleasant 73-year-old female who has experienced severe right hip pain and difficulty bearing weight. Workup included x-rays which revealed severe osteoarthrosis in the hip. Given the deformity, the dysfunction, and the pain, as well as the failure of nonoperative management, recommendation was made for surgery. FINDINGS: Full-thickness chondral loss diffusely throughout the femoral head and acetabulum. Osteophytes on the femoral head/neck junction. Moderate effusion upon entering the joint. DESCRIPTION OF PROCEDURE: Following a thorough discussion of risks, benefits, and alternatives consent was obtained and the right hip was marked. The patient was brought to the operating room and placed supine on the operating table. Induction of anesthesia was undertaken. 2 g IV Ancef and 1 g tranexamic acid was administered within 1 hr of incision preoperatively. Proper time-out was performed identifying proper patient, site, procedure. The operative extremity was prepped and draped in the appropriate sterile fashion using ChloraPrep after the patient was positioned on the [place] table with head in neutral alignment and all bony prominences well padded. C-arm fluoroscopic imaging was utilized to confirm proper pelvis rotation and position, and to get true AP films of both the contralateral left, and the affected right hip. This is for comparison. A longitudinal incision was made starting approximately 1 cm distal to the ASIS, and 3-4 cm lateral. The incision was extended distally aiming toward the lateral border the patella. Sharp incision through skin and bovie cautery through the subcutaneous tissue allowed identification of the TFL fascia. This was sharply divided, and the fascia bluntly released from the muscle fibers as we dissected medial. Upon coming to the medial border, we were able to retract the TFL laterally, and penetrated the deeper fascia and identify the crossing circumflex vessels. These were ligated/cauterized. The rectus was elevated from the capsule, and retractors placed laterally and medially along the femoral neck to help with visualization of the capsule. We then performed an inverted T capsulotomy. The capsule was tagged for later repair. Retractors were placed inside the capsule. The femoral neck was visualized after releasing medially down to the lesser trochanter, along the saddle laterally, and up onto the acetabulum. The femoral neck cut was made in line with our preoperative templating. The head was removed in a single piece, and sized. We turned our attention to acetabular preparation. Initially, the labrum was resected from around the perimeter, the pulvinar was excised, allowing us to visualize the false wall. We started the reaming with a 43 mm reamer. This was medialized down to the true wall. We then enlarged our reamers sequentially up to one size less than the selected cup size. We trialed at the same size and found it to have an excellent fit. The selected cup was then opened, inserted, and impacted in line with the goal of 40? of abduction, and 20-25? of anteversion. This was confirmed on C-arm fluoroscopic imaging to be in the appropriate/goal position. Once the cup was placed we placed a hole eliminator and a liner consistent with preop planning. Attention was turned to the femoral preparation. The limb was extended, externally rotated, and adducted. The posteromedial capsule was released, as retractors were placed allowing excellent access to the proximal femur. Initially a dust box worker was followed by canal finder followed by various broaches. We broached sequentially up to the size noted above, found it to have excellent rotational control, and trialing various heads and necks, revealed that appropriate neck offset, and the above noted head size provided the greatest stability, and pentecostal of length, and offset. C-arm fluoroscopic imaging confirmed position of the stem, as well as leg lengths, which were compared with the pre procedure all fluoroscopic images. Trial implants were removed, the real femoral stem inserted, as was the appropriate head. After reducing, the leg was placed through range of motion and stability was confirmed anterior, posterior, and lateral. A 3 min Betadine soak was then performed, and thorough irrigation with normal saline followed. Closure of the capsule was performed with #1 PDS. Bleeding was confirmed to be controlled at this stage, and the TFL fascia was closed with #0 strata fix. Subcutaneous, and subcuticular closure was performed with 2-0 Vicryl and 4-0 Monocryl, respectively. Dressings were applied, and the patient was awoken from anesthesia and transferred the PACU in stable condition. A skilled assistant professor of drama was critical for this case to aid in patient positioning, tissue retraction, acetabular and proximal femoral exposure, limb manipulation/positioning, dislocation/relocation, patient safety, and closure. PLAN: 1. Weight bear as tolerated operative extremity. 2. 23 hr perioperative antibiotics. 3. Ice. 4. PT/OT consults for ambulation assistance/mobility education. 5. Social work consult for discharge planning. 6. DVT prophylaxis with at SCDs and Xarelto x5 days followed by aspirin for a total of 1 month..
--- NOTE | 2024-02-08 11:17 | W.ANESCHARGE ---
Anesthesia Charges Start Date/Time Anesthesia Start Date: 02/08/24 Anesthesia Start Time: 09:09 Stop Date/Time Anesthesia Stop Date: 02/08/24 Anesthesia Stop Time: 11:17
[2024-02-08] MEDS: PHENYLEPHRINE 100 MCG/ML SYRINGE IVP (11:25)
[2024-02-08] MEDS: HYDROmorphone 0.5 mg/0.5 ml inj IVP ×2 (13:21→16:35)
[2024-02-08] MEDS: LACTATED RINGERS 1000 ML 1,000 ML 75 ML IV (13:24)
[2024-02-08] MEDS: ONDANSETRON 2 MG/ML inj 4 MG IVP (14:08)
[2024-02-08] MEDS: PROCHLORPERAZINE 5 MG/ML VIAL 10 MG IV (16:00)
--- NOTE | 2024-02-08 16:19 | P.IMCN_ITS ---
Date of Consult Consult date: 02/08/24 Primary Care Provider: Yolanda Reilly, Consult Narrative Narrative: Tierra Levin is a 73 year old female with past medical history of hypertension, hyperlipidemia, hypothyroidism, stricture and stenosis of esophagus, GERD, and tobacco use disorder who presented as an elective patient for orthopedic surgery d/t Right hip osteoarthritis. Pt is currently S/P Right total hip arthroplasty. Estimated blood loss was 300 mL. Postoperatively, patient felt nauseous though she got her Zofran. Will give her Compazine and famotidine. She had upper endoscopy this year and there were no concerns or issues. The patient regarding her esophageal stricture. She does not have to take modified diet. Review of Systems Status of ROS: Reports: 6 or more systems reviewed and unremarkable except as noted in History and below [facility] Medical History (Updated 02/08/24 @ 18:07 by Lena Pate MD) Palpitations ?R00.2 - Palpitations (ICD-10) Stricture and stenosis of esophagus ?K22.2 - Esophageal obstruction (ICD-10) Hyperlipidemia ?E78.5 - Hyperlipidemia, unspecified (ICD-10) High cholesterol ?E78.00 - Pure hypercholesterolemia, unspecified (ICD-10) GERD (gastroesophageal reflux disease) ?K21.9 - Gastro-esophageal reflux disease without esophagitis (ICD-10) Hypothyroidism ?E03.9 - Hypothyroidism, unspecified (ICD-10) Cervicalgia ?M54.2 - Cervicalgia (ICD-10) Diverticulosis of large intestine without diverticulitis (12/11/14) ?K57.30 - Diverticulosis of large intestine without perforation or abscess without bleeding (ICD-10) Osteopenia (10/05/16) ?M85.80 - Other specified disorders of bone density and structure, unspecified site (ICD-10) DDD (degenerative disc disease) (08/27/15) Surgical History (Updated 02/08/24 @ 18:04 by Lena Pate MD) History of foot surgery (06/20/15) ?Z98.890 - Other specified postprocedural states (ICD-10) History of esophagogastroduodenoscopy (EGD) (10/2023) ?Z98.890 - Other specified postprocedural states (ICD-10) History of esophagogastroduodenoscopy (EGD) (01/08/15) ?Z98.890 - Other specified postprocedural states (ICD-10) S/P breast lumpectomy ?Z98.890 - Other specified postprocedural states (ICD-10) History of thyroidectomy, subtotal (1994) ?E89.0 - Postprocedural hypothyroidism (ICD-10) History of tubal ligation ?Z98.51 - Tubal ligation status (ICD-10) Family History Mother Dementia Father Prostate cancer Brother Stroke, Onset Age: 71 Sister Breast cancer, Onset Age: 61 Maternal Grandmother Uterine cancer Paternal Grandfather Alcohol dependence Aunt Breast cancer Social History What is your current living situation?: I presently have a place to live In the past 12 mos, have been you worried that your food would run out before you had money to buy more?: never true In the past 12 mos, the food you bought just didn't last and you didn't have money to buy more?: never true Smoking Status: Former smoker Do you use any of these nicotine containing products: None How often do you have a drink containing alcohol: never How often do you have six or more drinks on one occasion: Never AUDIT-C Alcohol total score: 0 Non-prescribed substance use details: 5mg gummy nightly Caffeine: No How often does anyone, including family, friends and others, physically hurt you : never How often does anyone, including family, friends and others, insult or talk down to you: never How often does anyone, including family, friends and others, threaten you with harm: never How often does anyone, including family, friends and others, scream or curse at you: never service: No Meds Home Medications and Allergies Home Medications ?Medication ?Instructions ?Recorded ?Confirmed ?Type levothyroxine 100 mcg tablet 100 mcg PO DAILY 12/18/21 02/08/24 History (Synthroid) rosuvastatin 10 mg tablet 10 mg PO QPM 03/11/23 02/08/24 History famotidine 20 mg tablet (Acid-Pep) 20 mg PO BID 12/27/23 02/08/24 History Allergies Allergy/AdvReac Type Severity Reaction Status Date / Time No Known Drug Allergies Allergy Verified 02/08/24 07:25 Exam Narrative: Exam Narrative: Physical exam GENERAL: Comfortable, no acute distress. HEAD AND NECK: Atraumatic, normocephalic CARDIOVASCULAR: RRR. Normal S1, S2. No murmurs. RESPIRATORY: Clear to auscultation B/L. Good air entry B/L. No wheezes or rhonchi. GASTROINTESTINAL: Not distended, not tender to palpation. NEUROLOGY: Alert, awake, oriented X 3. Normal speech. No focal weakness. EXT: Right hip area dressing. PSYCH: Normal mood, normal affect. Const: Vital Signs, click to edit/add: Vital Signs - 24 hr 02/08/24 08:02 02/08/24 08:45 02/08/24 08:50 Temperature 97.7 F Pulse Rate 65 65 59 L Respiratory Rate 16 16 16 Blood Pressure 123/69 136/66 111/67 Pulse Oximetry 96 96 96 Oxygen Delivery Me thod Room Air Nasal Cannula Nasal Cannula Oxygen Flow Rate 2 2 02/08/24 11:15 02/08/24 11:20 02/08/24 11:25 Temperature 97.0 F L Pulse Rate 74 75 74 Respiratory Rate 16 16 16 Blood Pressure 91/51 L 106/52 L 86/43 L Pulse Oximetry 98 98 100 Oxygen Delivery Me thod OxyMask OxyMask OxyMask Oxygen Flow Rate 4 4 4 02/08/24 11:30 02/08/24 11:35 02/08/24 11:40 Temperature Pulse Rate 69 71 63 Respiratory Rate 16 16 16 Blood Pressure 109/84 109/53 L 113/55 L Pulse Oximetry 100 100 98 Oxygen Delivery Me thod OxyMask Room Air Room Air Oxygen Flow Rate 4 02/08/24 11:45 02/08/24 11:55 02/08/24 12:00 Temperature 96.9 F L 96.9 F L Pulse Rate 61 60 61 Respiratory Rate 16 14 14 Blood Pressure 106/49 L 112/77 107/71 Pulse Oximetry 98 92 100 Oxygen Delivery Me thod Room Air Room Air Room Air Oxygen Flow Rate 02/08/24 12:15 02/08/24 12:30 02/08/24 13:00 Temperature 97 F L 97 F L 97.7 F Pulse Rate 58 L 61 61 Respiratory Rate 14 16 16 Blood Pressure 112/65 108/72 110/73 Pulse Oximetry 100 100 97 Oxygen Delivery Me thod Room Air Room Air Room Air Oxygen Flow Rate 4 Assessment and Plan Assessment and plan (1) S/P total right hip arthroplasty: Problem comment: -Start early ambulation with physical therapy. -perioperative antibiotics per Orthopedics. -Start DVT prophylaxis tonight w/ SCDs and Xarelto x5 days followed by aspirin for a total of 1 month. -Monitor for urine output postoperatively, bladder scan if needed. -Encourage incentive spirometry. Status: Acute (2) Osteoarthritis of right hip: Problem comment: Status post right hip arthroplasty on February 16 2024 Status: Acute (3) Hypertension: Problem comment: Not on meds Status: Acute (4) Stricture and stenosis of esophagus: Problem comment: She had upper endoscopy this year and there were no concerns or issues regarding her esophageal stricture. She does not have to take modified diet. Status: Chronic (5) Hyperlipidemia: Problem comment: On a statin Status: Chronic (6) Hypothyroidism: Problem comment: On Synthroid 100 mcg Status post partial thyroidectomy Status: Chronic Plan As above Total Time Spent Total Time Spent: Time spent: Today I spent 75 minutes seeing the patient, discussing the patient with ER staff, reviewing Expanse and EPIC notes/diagnostics, discussing the care plan with our care time that includes social work, PT/OT, pharmacy, RT, residential and documenting my impressions and plan in the medical record.
[2024-02-08] MEDS: FAMOTIDINE 10 MG/ML inj 20 MG IVP (18:13)
--- NOTE | 2024-02-08 18:57 | PC.NURSE ---
shift note; pt medicated x2 for 10+/10 pain with relief. pt having severe nausea. pt medicated with prn zofran with minimal relief. Dr. Paredes gave verbal order for compazine 10 mg IV x1. pt had minimal relief. Pt using alcohol wipe, cool washcloth and aroma therapy for nausea with no relief. Pt had 20cc clr emesis. pt up in recliner for 1 hr. Pt refused dinner. Pt medicated with scheduled famotidine, with nausea relieving. drsg to Rt hip c/d/i with active ice. cms intact with + bilat PP. IV patent. Pt voided in bsc. IS to 1000
[2024-02-08] MEDS: SENNOSIDES 1 TAB TABLET 2 TAB PO (21:02)
[2024-02-09] MEDS: CEFAZOLIN 2 GM in 0.9 % SODIUM CHLORIDE Mini-bag 100 ML IVPB ×2 (00:19→07:54)
[2024-02-09] MEDS: LACTATED RINGERS 1000 ML 1,000 ML 75 ML IV (02:35)
[2024-02-09 02:36] VITALS: BP 122/59; PULSE 79; RESP 16; TEMP 37.2; O2SAT 95
[2024-02-09] MEDS: ACETAMINOPHEN 500 MG TABLET 1000 MG PO ×2 (03:07→09:32)
[2024-02-09] MEDS: LEVOTHYROXINE 100 MCG TABLET PO (05:22)
[2024-02-09] MEDS: FAMOTIDINE 20 MG TABLET PO (06:38)
--- NOTE | 2024-02-09 06:50 | PC.NURSE ---
Shift note ([id number]): Patient pleasant, alert and oriented. Transferred to bedside commode with walker, gait belt and assist of one. Given scheduled Tylenol and active ice for pain in right hip rated 1-3/10. Dressing C,D&I. No emesis or reports of nausea this shift. Tolerated saltines and Jello this morning. Denies nausea at this time. 0900 Prilosec given at 0630 per pt request as she was concerned about getting an upset stomach.
[2024-02-09 06:59] LABS: Potassium* 4.1 mmol/L (3.6-5.1); Sodium* 137 mmol/L (135-149)
[2024-02-09 07:00] VITALS: BP 109/62; PULSE 76; RESP 18; TEMP 36.7; O2SAT 97
[2024-02-09 07:02] LABS: Blood Urea Nitrogen* 11 mg/dL (7-30); Creatinine* 0.6 mg/dL (0.5-1.5); Est. Creatinine Clearance* 40.21; Estimated Glomerular Filt Rate 94 ml/min
[2024-02-09 07:05] LABS: Basophils Absolute Auto 0.02 K/uL (0.00-0.30); Basophils Percent Auto 0.3 % (0.0-3.0); Eosinophils Absolute Auto 0.02 K/uL (0.00-0.50); Eosinophils Percent Auto 0.3 % (0.0-7.0); Hematocrit 32.5 % (33.0-51.0); Hemoglobin* 10.6 gm/dL (12.0-16.0); Immature Granulocytes Abs Auto 0.05 K/uL (0.00-0.30); Immature Granulocytes Pct Auto 0.6 %; Lymphocytes Absolute Auto 2.16 K/uL (0.90-2.90); Mean Corpuscular HGB Conc 33 gm/dL (32-36); Mean Corpuscular Hemoglobin 28 pg (26-34); Mean Corpuscular Volume 87 fL (80-100); Monocytes Percent Auto 10.6 % (0.0-11.0); Neutrophils Absolute Auto 4.89 K/uL (1.7-7.0); Neutrophils Percent Auto 61.2 % (42.0-72.0); Platelet Count* 297 K/uL (140-440); Red Blood Count 3.75 m/uL (4.00-5.20); White Blood Count* 7.99 K/uL (4.50-11.00)
[2024-02-09 07:11] LABS: Slide Review Reflex No
[2024-02-09] MEDS: RIVAROXABAN 10 MG TABLET PO (07:54)
[2024-02-09] MEDS: TRAMADOL HCL 50 MG TABLET PO (09:54)
--- NOTE | 2024-02-09 11:15 | P.ORPN_ITS ---
Subjective Subjective Date Seen: 02/09/24 Principal diagnosis: Status postop day 1, right total hip arthroplasty - anterior approach Interval history: Patient reports doing better this morning. Reports difficult night due to nausea vomiting. She feels this is due to the oral medications for pain states oxycodone. Nausea and vomiting has since resolved. Progressing her diet. Pain managed with scheduled and PRN medications, ice. DVT prophylaxis: Rivaroxaban, SCDs, walking. Denies fevers, chills, aches, N/V, CP, SOB/SUAREZ, or lightheadedness. Ortho Exam Narrative Exam Narrative: -Patient appears comfortable in recliner; no apparent acute distress -Alert and oriented times 3 -Operative hip swollen; soft tissues supple; no obvious erythema. Ecchymosis mi nimal. Warmth appropriate -Surgical dressing clean, dry, intact; no obvious drainage, no erythematous streaking peripheral to the bandage -Bilateral calves soft and supple; no significant swelling, edema, tenderness, erythema, discoloration, warmth, or palpable cords -2+ DP/PT pulses, intact dermatomes and myotomes distally (5/5 strength). No numbness about the lateral femoral cutaneous nerve distribution. Const Vital Signs, click to edit/add: Vital Signs - 24 hr 02/08/24 11:20 02/08/24 11:25 02/08/24 11:30 Temperature Pulse Rate 75 74 69 Pulse Rate [Pulse Oximeter] Respiratory Rate 16 16 16 Blood Pressure 106/52 L 86/43 L 109/84 Blood Pressure [Left Arm] Blood Pressure [Right Arm] Pulse Oximetry 98 100 100 Oxygen Delivery Method OxyMask OxyMask OxyMask Oxygen Flow Rate 4 4 4 02/08/24 11:35 02/08/24 11:40 02/08/24 11:45 Temperature Pulse Rate 71 63 61 Pulse Rate [Pulse Oximeter] Respiratory Rate 16 16 16 Blood Pressure 109/53 L 113/55 L 106/49 L Blood Pressure [Left Arm] Blood Pressure [Right Arm] Pulse Oximetry 100 98 98 Oxygen Delivery Method Room Air Room Air Room Air Oxygen Flow Rate 02/08/24 11:55 02/08/24 12:00 02/08/24 12:15 Temperature 96.9 F L 96.9 F L 97 F L Pulse Rate 60 61 58 L Pulse Rate [Pulse Oximeter] Respiratory Rate 14 14 14 Blood Pressure 112/77 107/71 112/65 Blood Pressure [Left Arm] Blood Pressure [Right Arm] Pulse Oximetry 92 100 100 Oxygen Delivery Method Room Air Room Air Room Air Oxygen Flow Rate 02/08/24 12:30 02/08/24 13:00 02/08/24 13:30 Temperature 97 F L 97.7 F 97.7 F Pulse Rate 61 61 57 L Pulse Rate [Pulse Oximeter] Respiratory Rate 16 16 16 Blood Pressure 108/72 110/73 123/66 Blood Pressure [Left Arm] Blood Pressure [Right Arm] Pulse Oximetry 100 97 98 Oxygen Delivery Method Room Air Room Air Room Air Oxygen Flow Rate 4 02/08/24 14:00 02/08/24 15:00 02/08/24 15:00 Temperature 97.8 F 96.8 F L Pulse Rate 59 L 63 Pulse Rate [Pulse Oximeter] Respiratory Rate 16 16 16 Blood Pressure 113/61 116/63 Blood Pressure [Left Arm] Blood Pressure [Right Arm] Pulse Oximetry 99 93 100 Oxygen Delivery Method Room Air Room Air Room Air Oxygen Flow Rate 02/08/24 16:00 02/08/24 16:03 02/08/24 17:00 Temperature 96.8 F L 96.8 F L 96.8 F L Pulse Rate 68 71 Pulse Rate [Pulse Oximeter] Respiratory Rate 16 16 16 Blood Pressure 124/97 H 136/63 Blood Pressure [Left Arm] Blood Pressure [Right Arm] 124/97 H Pulse Oximetry 93 93 97 Oxygen Delivery Method Room Air Room Air Room Air Oxygen Flow Rate 02/08/24 18:30 02/08/24 20:16 02/08/24 22:05 Temperature 96.8 F L 98.6 F 99.2 F Pulse Rate 73 Pulse Rate [Pulse Oximeter] 75 83 Respiratory Rate 16 20 18 Blood Pressure 132/64 Blood Pressure [Left Arm] Blood Pressure [Right Arm] 118/65 134/68 Pulse Oximetry 97 96 96 Oxygen Delivery Method Room Air Room Air Room Air Oxygen Flow Rate 02/08/24 23:00 02/09/24 02:36 02/09/24 07:00 Temperature 98.9 F Pulse Rate Pulse Rate [Pulse Oximeter] 79 Respiratory Rate 18 16 Blood Pressure Blood Pressure [Left Arm] 122/59 L Blood Pressure [Right Arm] Pulse Oximetry 96 95 97 Oxygen Delivery Method Room Air Room Air Room Air Oxygen Flow Rate 02/09/24 07:00 Temperature 98.0 F Pulse Rate Pulse Rate [Pulse Oximeter] 76 Respiratory Rate 18 Blood Pressure Blood Pressure [Left Arm] Blood Pressure [Right Arm] 109/62 Pulse Oximetry 97 Oxygen Delivery Method Room Air Oxygen Flow Rate Assessment and Plan Assessment and plan (1) S/P total right hip arthroplasty: Problem details: -Start early ambulation with physical therapy. -perioperative antibiotics per Orthopedics. -Start DVT prophylaxis tonight w/ SCDs and Xarelto x5 days followed by aspirin for a total of 1 month. -Monitor for urine output postoperatively, bladder scan if needed. -Encourage incentive spirometry. Status: Acute (2) Osteoarthritis of right hip: Status: Acute (3) Hypertension: Problem details: Not on meds Status: Acute (4) Stricture and stenosis of esophagus: Problem details: She had upper endoscopy this year and there were no concerns or issues regarding her esophageal stricture. She does not have to take modified diet. Status: Chronic (5) Hyperlipidemia: Problem details: On a statin Status: Chronic (6) Hypothyroidism: Problem details: On Synthroid 100 mcg Status post partial thyroidectomy Status: Chronic Plan - Complete 23 hour perioperative antibiotics. - PT/OT consult for education and assistance. - Social work consult for discharge planning - Prescribed analgesics as needed - we tried tramadol for therapy today - this when better per patient.; she would like to try tramadol instead of oxycodone for home. The medicine change was made for discharge. - DVT prophylaxis: 5 days 10 mg rivaroxaban followed by 81 mg aspirin by mouth twice daily for 25 days, walking, and SCDs - Anticipation is for discharge to home with family/friends today 02/09/2024 if the patient remains medically stable, pain is controlled, and they are safe with mobilization.
--- NOTE | 2024-02-09 13:40 | PC.NURSE ---
Discharge: The patient discharged home with her daughter this afternoon. All discharge instructions/ education was given to the patient and her daughter. R hip dressing is CDI, ice packs were sent with the patient. All medications sent to family [facility]. Cathryn LEYVA- BSN
== END 2024-02-09 12:02 | disposition home or self-care (01) ==
LOC: OR 07:07 → MEDSURG 07:13
PROVIDERS: PCP Family Medicine; Visit Provider Orthopaedic Surgery Sports Medicine
PROC: (CPT 27130; principal; 2024-02-08 09:15)
DX: M16.11 Unilateral primary osteoarthritis, right hip (principal); M25.751 Osteophyte, right hip; G89.18 Other acute postprocedural pain; R11.2 Nausea with vomiting, unspecified; I10 Essential (primary) hypertension; K21.9 Gastro-esophageal reflux disease without esophagitis; K22.2 Esophageal obstruction; E03.9 Hypothyroidism, unspecified; E78.5 Hyperlipidemia, unspecified
CPT/HCPCS: 27130; 01214; 36415; 64450; 73501; 76000; 76942; 82565; 84132; 84295; 84520; 85025; 86850; 86900; 86901; 97110; 97116; 97161; 97165; 97530; 97535; 99100; A9270; C1776; J0690; J0780; J1171; J2250; J2371; J2405; J2704; J2795; J3010; J3490; J7120; S0028

== ENCOUNTER 2024-04-17 15:15 | Outpatient (RCR) | payer MEDICARE, BC, SELFPAY ==
--- NOTE | 2024-02-06 16:06 | PT.OPEX ---
PT [place] Outpatient Eval PT [facility] Outpatient Eval Start: 02/01/24 07:59 Freq: Status: Active Protocol: Document 02/06/24 15:54 GARRETT (Rec: 02/06/24 16:04 GARRETT [id number]) E-signed By Vi Rizzo, PT Physical Therapy Outpatient Evaluation Insurance Information Recert Due Date 05/02/24 Insurance Name Medicare B,Blue Cross/Blue Shield Medical Diagnosis Right hip OA Pre and post-op R BEN DOS Treating Diagnosis Limited right hip ROM, antalgic gait, muscle weakness Referring MD Nass[place] Subjective Preferred Name Anika Mayorga (Anika) reports to PT with primary complaint of right hip pain with gradual and insidious onset. This is significantly impacting her ability to walk and bend. She does not use an AD however has a 2WW and 4WW at home as well as SEC. She lives in multilevel home but lives on main level and daughter lives above her. Normally takes bathes on main level but plans to shower in walk-in shower in the basement (1 railing). She has 3 steps to get into home with B railings. PMH: osteoporosis, DDD, diverticulitis, s/p breast lumpectomy Pain Comments -10/28 Date of Last Physician Visit 12/28/23 Current Work Status Retired Objective Other/Pertinent Objective Significant antalgic gait with limited stance time R LE, reverse trendelenburg R ROM R -IR 5 with sig groin pain -ER 25 SLR - Grossly 4/5 hip strength Assessment Assessment/Impression Anika is a 73 year old female presenting to PT for preparation of upcoming R BEN DOS 02/08/24 d/t end stage OA. Session focused on education of anterior hip precautions, post-operative fall prevention precautions, transfers, gait with AD, stair negotiation, post-operative exercises. She is able to verbalize precautions and demonstrated independence with exercises, gait and stairs. She is appropriate to proceed with surgery at this time. Primary Functional Limitations Walking, standing, bending Plan of Care Rehabilitation Potential Good Physical Therapy Goals By end of session today, patient will... Demonstrate appropriate gait pattern with 2WW to utilize post surgery for optimal safety when ambulating Demonstrate ability to negotiate stairs using appropriate stair pattern post surgery for optimal safety when at home and in community Verbalize understanding of most appropriate home set up including needed equipment for optimal safety and recovery post surgery Be independent in HEP program to show ability to perform appropriate exercises post surgery Treatment Plan/Direct Interventions Gait Training,Ice/Cold/ Vasopneumatic,Joint Mobilization,Manual Therapy, Neuromuscular Re-ed,Self-Care/ Home Management,Therapeutic Activities,Therapeutic Exercises Frequency/Duration Re-evaluate following surgery Patient Will Be Discharged From Therapy Completion of LTG(s), Independent w/HEP, Independently Progressing Evaluation Billing Untimed Code Treatment Minutes 20 Complexity Low Certification Information Initial Certification Date 02/06/24 Ending Certification Date 05/02/24 Provider Signature Required Yes Provider Signature Shows Agreement With POC & Medical Necessity Physician NPI Number Write NPI# Here Physician Comment/Change : Physician Signature & Date Requested Please Sign/Date Here
== END 2024-04-17 16:27 | disposition home or self-care (01) ==
PROVIDERS: PCP Family Medicine; Visit Provider Orthopaedic Surgery Sports Medicine
DX: M16.11 Unilateral primary osteoarthritis, right hip (principal); Z96.641 Presence of right artificial hip joint; Z74.09 Other reduced mobility; R26.9 Unspecified abnormalities of gait and mobility; M62.81 Muscle weakness (generalized); Z51.89 Encounter for other specified aftercare
CPT/HCPCS: 97110; 97116; 97140; 97161; 97164; 97535